=== PATIENT | female | born 1940 | race Caucasian/White ===

== ENCOUNTER 2020-06-23 14:09 | Outpatient (CLI) | payer MEDICARE, OTHER, SELFPAY ==
[2020-06-23 14:51] LABS: Alanine Aminotransferase 10 U/L (4-35); Albumin Level 4.2 g/dL (3.5-5.1); Alkaline Phosphatase 53 U/L (38-126); Anion Gap 6 mmol/L (8-16); Aspartate Amino Transferase 18 U/L (14-36); Bilirubin,Total 0.7 mg/dL (0.2-1.3); Blood Urea Nitrogen 15 mg/dL (7-17); Calcium 9.2 mg/dL (8.4-10.2); Carbon Dioxide 31 mmol/L (22-30); Chloride 105 mmol/L (98-107); Cholesterol 176 mg/dL (0-200); Estimated Glomerular Filt Rate > 60; Glucose 140 mg/dL (65-105); HDL Direct 73 mg/dL; Potassium 3.1 mmol/L (3.4-5.0); Sodium 142 mmol/L (137-145); Triglycerides 178 mg/dL (<150)
[2020-06-23 15:02] LABS: LDL Cholesterol Direct 86 mg/dL
[2020-06-23 15:21] LABS: Thyroid Stimulating Hormone 0.874 uIU/mL (0.465-4.680)
[2020-06-23 15:35] LABS: Vitamin D 25 Hydroxy 21.5 ng/mL
== END 2020-06-23 14:10 | disposition home or self-care (01) ==
PROVIDERS: PCP Internal Medicine; Visit Provider Internal Medicine
DX: Z51.81 Encounter for therapeutic drug level monitoring (principal); Z79.899 Other long term (current) drug therapy; I10 Essential (primary) hypertension; E03.9 Hypothyroidism, unspecified; E55.9 Vitamin D deficiency, unspecified; E78.5 Hyperlipidemia, unspecified
CPT/HCPCS: 36415; 80053; 80061; 82306; 84443

== ENCOUNTER 2020-12-22 13:35 | Outpatient (CLI) | payer MEDICARE, OTHER, SELFPAY | END 2020-12-22 13:36 | disposition home or self-care (01) | LOC: ANHCOVIDVC 13:35 | PROVIDERS: PCP Internal Medicine | DX: Z23 Encounter for immunization (principal) | CPT/HCPCS: 0001A; 91300 ==

== ENCOUNTER 2021-01-12 13:42 | Outpatient (CLI) | payer MEDICARE, OTHER, SELFPAY | END 2021-01-12 13:43 | disposition home or self-care (01) | LOC: ANHCOVIDVC 13:42 | PROVIDERS: PCP Internal Medicine | DX: Z23 Encounter for immunization (principal) | CPT/HCPCS: 0002A; 91300 ==

== ENCOUNTER 2021-08-12 09:47 | Outpatient (CLI) | payer MEDICARE, OTHER, SELFPAY ==
[2021-08-12 10:52] LABS: Alanine Aminotransferase 14 U/L (4-35); Albumin Level 4.9 g/dL (3.5-5.1); Alkaline Phosphatase 64 U/L (38-126); Anion Gap 8 mmol/L (8-16); Aspartate Amino Transferase 26 U/L (14-36); Bilirubin,Total 0.8 mg/dL (0.2-1.3); Blood Urea Nitrogen 18 mg/dL (7-17); Calcium 9.9 mg/dL (8.4-10.2); Carbon Dioxide 30 mmol/L (22-30); Chloride 105 mmol/L (98-107); Cholesterol 227 mg/dL (0-200); Estimated Glomerular Filt Rate > 60; Glucose 118 mg/dL (65-110); HDL Direct 97 mg/dL; Potassium 3.7 mmol/L (3.4-5.0); Sodium 143 mmol/L (137-145); Triglycerides 151 mg/dL (<150)
[2021-08-12 11:03] LABS: LDL Cholesterol Direct 124 mg/dL
[2021-08-12 11:12] LABS: Vitamin D 25 Hydroxy 21.6 ng/mL
== END 2021-08-12 09:48 | disposition home or self-care (01) ==
PROVIDERS: PCP Internal Medicine; Visit Provider Internal Medicine
DX: E78.5 Hyperlipidemia, unspecified (principal); E03.9 Hypothyroidism, unspecified; E55.9 Vitamin D deficiency, unspecified
CPT/HCPCS: 36415; 80053; 80061; 82306; 84443

== ENCOUNTER 2022-02-17 10:30 | Outpatient (CLI) | payer MEDICARE, OTHER, SELFPAY ==
[2022-02-17 11:14] LABS: Alanine Aminotransferase 10 U/L (6-35); Albumin Level 4.3 g/dL (3.5-5.1); Alkaline Phosphatase 64 U/L (38-126); Anion Gap 9 mmol/L (8-16); Aspartate Amino Transferase 25 U/L (14-36); Bilirubin,Total 0.9 mg/dL (0.2-1.3); Blood Urea Nitrogen 22 mg/dL (7-17); Calcium 8.9 mg/dL (8.4-10.2); Carbon Dioxide 28 mmol/L (22-30); Chloride 101 mmol/L (98-107); Cholesterol 214 mg/dL (0-200); Estimated Glomerular Filt Rate > 60; Glucose 114 mg/dL (65-110); HDL Direct 61 mg/dL; Potassium 3.2 mmol/L (3.4-5.0); Sodium 138 mmol/L (137-145); Triglycerides 138 mg/dL (<150)
[2022-02-17 11:25] LABS: LDL Cholesterol Direct 121 mg/dL
[2022-02-17 13:17] LABS: Vitamin D 25 Hydroxy 22.8 ng/mL
== END 2022-02-17 10:31 | disposition home or self-care (01) ==
PROVIDERS: PCP Internal Medicine; Visit Provider Internal Medicine
DX: I10 Essential (primary) hypertension (principal); Z51.81 Encounter for therapeutic drug level monitoring; E03.9 Hypothyroidism, unspecified; E55.9 Vitamin D deficiency, unspecified; E78.5 Hyperlipidemia, unspecified
CPT/HCPCS: 36415; 80053; 80061; 82306; 84443

== ENCOUNTER 2022-02-24 14:09 | Inpatient (IN) | payer MEDICARE, OTHER, SELFPAY ==
--- NOTE | ~2022-02-24 | XR_ITS ---
EXAMINATION: XR chest 1V portable DATE: 02/25/2022 23:42 INDICATION: Low oxygen saturation TECHNIQUE: frontal view of the chest was obtained. COMPARISON: Chest radiograph dated 02/24/2022 FINDINGS: New opacities in the right upper lung zone and in the left mid to lower lung zone. Streaky atelectasi s at the bilateral lung bases. No pneumothorax or pleural effusion. The cardiomediastinal silhouette is normal. Dense mitral annular calcification. Cholecystectomy clips in right upper quadrant. IMPRESSION: 1. New bilateral airspace opacities which could represent atelectasis or pneumonia. Reviewed, dictated and finalized at location A. IMPRESSION: 1. New bilateral airspace opacities which could represent atelectasis or pneumo gris.
--- NOTE | ~2022-02-24 | XR_ITS ---
XR chest 1V portable 02/24/2022 15:29 Indication: Weakness and dyspnea Procedure: AP portable chest Comparison: 08/14/2015 Findings: Cardiomegaly. No focal air space disease, pulmonary edema, pleural effusion or suspected pn eumothorax. No acute osseous abnormality. Impression: 1: No acute cardiopulmonary disease. Reviewed, dictated and finalized at location B. Impression: 1: No acute cardiopulmonary disease.
--- NOTE | ~2022-02-24 | US_ITS ---
EXAMINATION: US venous doppler [facility] DATE: 02/27/2022 10:16 INDICATION: Pulmonary embolism TECHNIQUE: Grayscale ultrasound images without and with compression and Doppler ultrasound images of the bilateral lower extremity veins were obtained. COMPARISON: CT abdomen and pelvis dated 02/26/2022 FINDINGS: Noncompressible deep venous thrombosis in the right profunda (deep) femoral vein, common femoral vein and extending into the visualized right external iliac vein. The visualized portions of right femora l vein, popliteal vein, posterior tibial veins, peroneal veins, gastrocnemius vein and greater saphen ous vein outflow are patent. The visualized portions of left common femoral vein, profunda femoral vein, femoral vein, popliteal v ein, posterior tibial veins, peroneal veins, gastrocnemius vein and greater saphenous vein outflow ar e patent. 6.0 x 3.0 x 1.4 cm Hills's cyst at the left popliteal fossa. IMPRESSION: 1. Nonocclusive deep venous thrombosis in the right profunda (deep) femoral vein, right common femor al vein and visualized distal right external iliac vein. 2. No deep venous thrombosis in the left lower limb. 3. Moderate-sized left Hills's cyst. Reviewed, dictated and finalized at location A. IMPRESSION: 1. Nonocclusive deep venous thrombosis in the right profunda (deep) femoral ve in, right common femoral vein and visualized distal right external iliac vein. 2. No deep venous thrombosis in the left lower limb. 3. Moderate-sized left Hills's cyst.
--- NOTE | ~2022-02-24 | CT_ITS ---
EXAMINATION: CT brain wo con DATE: 02/24/2022 15:51 INDICATION: Altered mental status. TECHNIQUE: Computed tomography (CT) of the head was performed without intravenous contrast. The mA wa s adjusted according to patient size. Iterative reconstruction technique was employed. The dose-lengt h product was 983.67 mGy-cm. COMPARISON: None FINDINGS: There are scattered areas of low attenuation in the cerebral white matter. There is no intr acranial hemorrhage, acute infarction, or abnormal intracranial mass lesion. The ventricles are rosa l in size. There is mild mucosal thickening in the paranasal sinuses. The mastoid air cells are rosa l. IMPRESSION: 1. Moderate nonspecific cerebral white matter disease, which likely represents chronic small vessel i schemic disease. Reviewed, dictated and finalized at location A. IMPRESSION: 1. Moderate nonspecific cerebral white matter disease, which likely represents chronic small vessel ischemic disease.
--- NOTE | ~2022-02-24 | XR_ITS ---
EXAMINATION: XR chest 1V portable DATE: 03/03/2022 05:54 INDICATION: Congestive heart failure. Pneumonia. TECHNIQUE: A single frontal view of the chest was obtained. COMPARISON: Chest single view 03/01/2022 FINDINGS: There are airspace opacities in all lung zones bilaterally. There is a small left pleural e ffusion. No pneumothorax. Cardiomegaly is noted. Surgical clips in the right upper quadrant are likel y from cholecystectomy. IMPRESSION: 1. Diffuse lung disease with mild improvement, consistent with pneumonia. 2. Improved small left pleural effusion. 3. Cardiomegaly. Reviewed, dictated and finalized at location A.
--- NOTE | ~2022-02-24 | CT_ITS ---
EXAMINATION: CTA chest PE abdomen pel DATE: 02/26/2022 14:30 INDICATION: hypoxia/UTI/AMS TECHNIQUE: Computed tomography angiography (CTA) of the chest abdomen and pelvis was performed with 1 00 mL Omnipaque-350 intravenous contrast timed to evaluate the pulmonary arteries and abdomen/pelvis. Coronal maximum intensity projection 3D-reconstructions were created by the technologist. The dose-l ength product (DLP) was 850.31 mGy-cm. Automated exposure control and iterative reconstruction techni que were employed. COMPARISON: X-ray chest 08/14/2015. FINDINGS: CTPA: Study quality: Adequate. Pulmonary arteries: Eccentric and weblike filling defects in the right main pulmonary artery, likely chronic emboli. Central nonobstructing filling defects in segmental and subsegmental branches of the right middle lobe and subsegmental branches of the right upper lobe. Obstructing and nonobstructing i nterlobar, segmental and subsegmental emboli in the right lower lobe. The RV/LV ratio is less than 1. Thoracic aorta: No dilation. Atherosclerotic calcification. Lung parenchyma and airways: Consolidation in the dependent left lower lobe and to a lesser extent th e dependent right upper and lower lobes. Thoracic inlet, axillae and chest wall: Unremarkable. Mediastinum: Normal. Heart and pericardium: Mild cardiomegaly. Aortic valve calcifications. Coronary artery calcifications: Mild. Pleura: Small bilateral effusions. Thoracic bones: No acute osseous finding. ABDOMEN/PELVIS: Liver: Normal. Biliary/Gallbladder: Gallbladder is normal. No bile duct dilation. Pancreas: No mass or duct dilation. Spleen: Normal. Adrenals:No mass. Kidneys: No mass, stone, or hydronephrosis. GI tract: No small or large bowel dilation. Normal appendix. Mesentery/Peritoneum: No ascites, mass, or free air. Retroperitoneum: No mass. Pelvis: Bladder is decompressed by Hernandez catheter. Rectal catheter in place.. Soft Tissues: Soft tissues and body wall unremarkable. Abdominopelvic bones: No acute osseous finding. IMPRESSION: Acute pulmonary emboli involving the right interlobar artery and segmental and subsegmental branches of all lobes in the right lung. Pulmonary findings may reflect pneumonia, possibly with a component o f aspiration. No acute abdominopelvic process. Results reported telephonically to Jaimie Cedillo the covering Nurse by Dr. Ashby at 3:05 PM on 2021. Reviewed, dictated and finalized at location K. IMPRESSION: Acute pulmonary emboli involving the right interlobar artery and segmental and subsegmental branches of all lobes in the right lung. Pulmonary findings may re flect pneumonia, possibly with a component of aspiration. No acute abdominopelv ic process. Results reported telephonically to Jaimie Cedillo the covering Nurse by Dr. Ramses villatoro at 3:05 PM on 02/26/2022.
--- NOTE | ~2022-02-24 | XR_ITS ---
EXAMINATION: XR chest 1V portable DATE: 03/01/2022 10:35 INDICATION: Dyspnea. Wheezing. TECHNIQUE: A single frontal view of the chest was obtained. COMPARISON: Chest single view 02/25/2022, chest CT 02/26/2022 FINDINGS: There are patchy airspace opacities in all lung zones bilaterally. There is a small left pl eural effusion. No pneumothorax. Cardiomegaly is noted. Surgical clips in the right upper quadrant ar e likely from cholecystectomy. IMPRESSION: 1. Worsened diffuse lung disease, consistent with pneumonia. 2. Small left pleural effusion. 3. Cardiomegaly. Reviewed, dictated and finalized at location A.
[2022-02-24 14:25] VITALS: BP 154/72; PULSE 54; RESP 20; TEMP 36.7; O2SAT 100
--- NOTE | 2022-02-24 14:38 | ECG_ITS ---
Measurements Intervals [place] Rate: 54 P: 43 [place]: 162 QRS: -25 QRSD: 145 T: 133 QT: 502 QTc: 477 Interpretive Statements SINUS BRADYCARDIA POSSIBLE LEFT ATRIAL ENLARGEMENT LEFT BUNDLE BRANCH BLOCK ABNORMAL ECG Electronically Signed On 02-24-2022 19:58:59 CDT by Bhavin Padilla D.O.
[2022-02-24 15:14] LABS: Basophils Percent Auto 0.5 % (0.2-1.2); Eosinophils Absolute Auto 0.2 K/mm3 (0-0.3); Eosinophils Percent Auto 1.9 % (0-4.4); Hematocrit 44.5 % (37.0-47.0); Hemoglobin 14.1 g/dL (12.0-15.0); Immature Granulocyte Absolute 0.03 K/mm3 (0.00-0.031); Immature Granulocyte Percent A 0.3 % (0-0.5); Lymphocytes Absolute Auto 2.64 K/mm3 (0.9-3.2); Lymphocytes Percent Auto 30.6 % (18.3-44.2); Mean Corpuscular HGB Conc 31.7 g/dl (32-36); Mean Corpuscular Hemoglobin 31.2 pg (26-34); Mean Corpuscular Volume 98.5 fl (80-100); Mean Platelet Volume 11.1 fl (7.4-10.4); Monocytes Absolute Auto 0.7 K/mm3 (0.1-0.6); Monocytes Percent Auto 8.6 % (2.6-8.5); Neutrophils Percent Auto 58.1 % (45.5-73.1); Platelet Count Result 209 k/mm3 (150-375); Red Blood Count 4.52 M/mm3 (4.2-5.4); Red Cell Distribution Width 14.3 % (11.5-14.5); White Blood Count 8.6 K/mm3 (4.5-10.0)
[2022-02-24 15:25] LABS: Appearance Urine Turbid (Clear); Bilirubin Urine 1+ (Negative); Blood Urine 1+ (Negative); Color Urine Yellow (Yellow); Glucose Urine UA Negative (Negative); Ketones Urine Negative (Negative); Leukocyte Esterase Ur 3+ LEU/UL (Negative); Nitrate Urine Positive (Negative); Protein Urine 2+ mg/dL (Negative); Specific Grav Ur >= 1.030 (1.001-1.035); pH Urine 6.5 (5.0-9.0)
[2022-02-24 15:27] LABS: Alanine Aminotransferase 10 U/L (6-35); Albumin Level 4.3 g/dL (3.5-5.1); Alkaline Phosphatase 62 U/L (38-126); Anion Gap 9 mmol/L (8-16); Aspartate Amino Transferase 24 U/L (14-36); Bilirubin,Total 1.2 mg/dL (0.2-1.3); Blood Urea Nitrogen 15 mg/dL (7-17); Calcium 9.1 mg/dL (8.4-10.2); Carbon Dioxide 32 mmol/L (22-30); Chloride 102 mmol/L (98-107); Estimated Glomerular Filt Rate > 60; Glucose 106 mg/dL (65-110); Lactic Acid Reflex 2.2 mmol/L (0.7-2.0); Potassium 3.4 mmol/L (3.4-5.0); Sodium 143 mmol/L (137-145)
--- NOTE | 2022-02-24 15:29 | ED.AMS ---
HPI - Altered Mental Status General Chief Complaint: Altered Mental Status Stated Complaint: altered mental status Time Seen by Provider: 02/24/22 14:28 Source: family History of Present Illness HPI narrative: Patient is brought in by family for weakness. Patient has known dementia family reports over the past week she has had progressive weakness and required additional assistance at home. Family has not noted any change in appetite however they have noted decreased urine output. Patient has not complained of any specific areas of pain to his abdominal pain chest pain or dysuria however patient does not voice any concerns on a regular basis he does not speak very much. Family has not noted any fevers, nausea, vomiting. They have noted some diarrhea over the past few days. Related Data Home Medications Medication Instructions Recorded Confirmed donepezil [Aricept] 10 mg PO DAILY 02/24/22 02/24/22 levothyroxine 88 mcg PO DAILY 02/24/22 02/24/22 lisinopril 20 mg PO DAILY 02/24/22 02/24/22 memantine 28 mg PO DAILY 02/24/22 02/24/22 metoprolol succinate 50 mg PO DAILY 02/24/22 02/24/22 simvastatin 20 mg PO DAILY 02/24/22 02/24/22 Allergies Allergy/AdvReac Type Severity Reaction Status Date / Time Sulfa (Sulfonamide Allergy Unknown Unknown Verified 02/24/22 14:45 Antibiotics) Review of Systems Review of Systems: ROS unobtainable: Yes unobtainable due to medical condition PMFSH Family History Family History Mother Family history of malignant neoplasm Social History Social History Smoking status: Never smoker Second hand tobacco smoke exposure: No Alcohol intake: never Substance use: never Substance use type: does not use Spiritual care concerns: Yes (Zohaib) Exam Narrative: GENERAL: Well-appearing, well-nourished, and in no acute distress. HEAD: Normocephalic, atraumatic. EYES: PERRLA and EOMI. ENT: Nares clear, no rhinorrhea or epistaxis. Mucous membranes moist. NECK: Supple. No masses. No JVD CHEST: Clear to auscultation. No respiratory distress. No wheezes rales or rhonchi HEART: Regular rate and rhythm. No murmur heard. Normal peripheral pulses. ABDOMEN: Soft, nontender, nondistended, normal active bowel sounds. EXTREMITIES: Normal range of motion. No edema. SKIN: Warm, dry, no rash. NEURO: No focal deficits. Alert and oriented x3. PSYCH: Normal mood and affect. Course Reevaluation(s) Reevaluation #1: Results and work-up reviewed with patient and family. Patient is requiring more assistance than family is able to provide at this time. Patient will be admitted for further treatment. Family is interested in pursuing home health and other forms of additional home. Date: 02/24/22 Time: 16:21 Vital Signs Vital signs: Vital Signs Temperature 36.7 C 02/24/22 14:25 Pulse Rate 54 L 02/24/22 14:25 Respiratory Rate 20 02/24/22 14:25 Blood Pressure 154/72 H 02/24/22 14:25 Pulse Oximetry 100 02/24/22 14:25 Temperature 36.0 C L 02/24/22 18:08 Pulse Rate 101 H 02/24/22 18:08 Respiratory Rate 18 02/24/22 18:08 Blood Pressure 151/94 H 02/24/22 18:08 Pulse Oximetry 93 02/24/22 18:08 MDM - Altered Mental Status MDM Narrative Medical decision making narrative: Patient presents with progressive weakness over the past week now requires constant assistance with getting up walking around and using the restroom. Patient overall looks clinically well labs and imaging obtained. Lab goal for UA concerning for infection otherwise labs were clinically unremarkable. Patient treated with fluids and antibiotics. Given the amount of care she is currently requiring at home family is unable to appropriately care for her she will be admitted for further management. Lab Data Result diagrams: 02/24/22 15:07 02/24/22 15:07 Labs: Lab Results
[2022-02-24 15:35] LABS: Bacteria Urine 2+ /hpf; Mucus Urine Heavy /lpf; RBC Urine 21-50 /hpf (0-2); WBC Clumps Urine Present /HPF; WBC Urine >75 /hpf
[2022-02-24 15:37] LABS: Add Urine Microscopic? YES
[2022-02-24] MEDS: SODIUM CHLORIDE 0.9% IV 500 ML 999 ML IV CONT (15:38)
[2022-02-24 15:39] LABS: Ammonia < 9 umol/L (9-30)
[2022-02-24 17:09] VITALS: BP 150/76; PULSE 56; RESP 18; O2SAT 99
--- NOTE | 2022-02-24 17:49 | PC.NURSE ---
This patient, Sana Murrieta, was admitted to 3 [facility] Surg Room 332-01 on 02/24/22 @ 8167. Patient/family oriented to hospital policies and general routines including ID bracelet, bed and alarms, visiting hours, pain management, procedures, bathroom and other care routines, personal items, smoking policy, room service/diet, and visiting hours. Information on how to activate the Rapid Response Team has been discussed. Patient/Family are encouraged to report perceived risks to care and to ask questions if they do not understand what they are told or what they should do.
[2022-02-24 18:00] VITALS: BMI 25.2
[2022-02-24 18:08] VITALS: BP 151/94; PULSE 101; RESP 18; TEMP 36; O2SAT 93
[2022-02-24 18:12] LABS: Reflex Lactic Acid Yes or No Add Lactic
--- NOTE | 2022-02-24 18:36 | PC.NURSE ---
pt's daughter and were bedside and offering information as pt is A&O 0. Pt's daughter is the POA if becomes incapacitated. Both, particularly the daughter, POAs stated that pt becomes violent and is very aggressive and they strongly recommend that she be sedated. They also stated that if/when the need arises for her to be medicated for her or our safety they wholeheartedly consent to us doing whatever is needed in order to calm her down. They also acknowledged that pt has advanced dementia and permanent and consistent personality changes including but not limited to being violent and being non-responsive with a baseline of A&O 0-1.
[2022-02-24 18:39] LABS: Lactic Acid 2.5 mmol/L (0.7-2.0)
--- NOTE | 2022-02-24 18:42 | PC.NURSE ---
pt's and daughter (who are the POAs) stated that pt is to be a modified code in that they DO WANT INTUBATION and they DO NOT WANT CPR in the event either are needed.
[2022-02-24] MEDS: SODIUM CHLORIDE 0.9% IV 1,000 ML 125 ML IV CONT (18:48)
--- NOTE | 2022-02-24 19:55 | PM.IMHP ---
H&P: HPI History of Present Illness Date/Time: 02/24/22 19:55 Chief Complaint: No complaints Narrative: This is an 81-year-old female with past medical history significant for dementia, hypertension, hypothyroidism, dyslipidemia. Patient was brought to the emergency room for evaluation by family members who noticed that she was getting progressively weak and needing a lot of assistance at home not been her usual, patient is unable to provide any history. Preliminary workup was significant for urinalysis with numerous WBCs present. Patient is been admitted for further evaluation management and treatment. Review of Systems Review of Systems: ROS unobtainable: Yes unobtainable due to medical condition (Dementia) [facility] Family History Family History Mother Family history of malignant neoplasm Social History Social History Smoking status: Never smoker Second hand tobacco smoke exposure: No Alcohol intake: never Substance use: never Substance use type: does not use Spiritual care concerns: Yes (Zohaib) Meds Home Medications and Allergies Home Medications Medication Instructions Recorded Confirmed Type famotidine 20 mg tablet 20 mg PO DAILY #90 tablet 08/26/19 02/24/22 Rx donepezil [Aricept] 10 mg PO DAILY 02/24/22 02/24/22 History levothyroxine 88 mcg PO DAILY 02/24/22 02/24/22 History lisinopril 20 mg PO DAILY 02/24/22 02/24/22 History memantine 28 mg PO DAILY 02/24/22 02/24/22 History metoprolol succinate 50 mg PO DAILY 02/24/22 02/24/22 History simvastatin 20 mg PO DAILY 02/24/22 02/24/22 History Allergies Allergy/AdvReac Type Severity Reaction Status Date / Time Sulfa (Sulfonamide Allergy Unknown Unknown Verified 02/24/22 14:45 Antibiotics) Vital Signs Vital Signs - 24 hr 02/24/22 14:25 02/24/22 17:09 02/24/22 18:08 Temperature 98.0 F 96.8 F L Pulse Rate 54 L 56 L 101 H Respiratory Rate 20 18 18 Blood Pressure 154/72 H 150/76 H 151/94 H Pulse Oximetry 100 99 93 Exam Const: General: cooperative, comfortable, no acute distress, well developed, alert, awake, well groomed and other (Well-appearing) Nutritional Appearance: average body habitus Orientation/consciousness: oriented to person Other: Dementia HENMT: Head: normal to inspection, normocephalic and atraumatic Ears: hearing grossly normal bilaterally General nose exam: Normal external nose present Face and sinus: normal facial exam Mouth: Yes Normal oral and palatal mucosa present Eyes: General: appearance normal, both eyes and all related structures Alignment and Position: alignment normal Sclera: sclerae normal Pupils: Equal, round and reactive pupils present EOM: EOMs intact bilaterally Neck: Neck: normal visual inspection, full ROM, no lymphadenopathy, supple and no JVD Thyroid: thyroid normal Lymphatic: no lymphadenopathy noted Resp: Effort & Inspection: normal respiratory effort and able to speak in complete sentences Auscultation: clear to auscultation bilaterally, no crackles, no rales, no rhonchi and no wheezes Cardio: Jugular venous distension: no JVD Rate: regular rate Rhythm: regular rhythm Heart sounds: S1 normal heart sound present and S2 normal heart sound present GI: Inspection: normal to inspection GI Palp: Yes Soft to palpation, No Tenderness to palpation present (GI), No Guarding due to palpation present (GI) and Yes No hepatosplenomegaly present : General: Yes deferred Skin: Rashes: no rashes Wounds: no wounds Neuro: General: oriented to person and CN's II-XI intact bilaterally Cranial nerves: Yes CN's II-XII intact bilaterally and Yes Equal, round and reactive pupils present Cognition (Neuro): abnormal cognition (Dementia) Speech: normal speech Gait exam (Neuro): Unable to assess gait Motor exam (neuro): 5/5 motor strength present throughout Extrem: General: normal to inspection
[2022-02-24 22:00] VITALS: BP 113/72; PULSE 83; RESP 20; TEMP 36.3; O2SAT 96
[2022-02-25] VITALS (10 sets, daily range): BP systolic 107–196; BP diastolic 62–187; PULSE 55–112; RESP 12–32; TEMP 36.1–38.8; O2SAT 82–100
[2022-02-25] MEDS: LEVOTHYROXINE SODIUM 88 MCG TABLET PO (06:55)
[2022-02-25] MEDS: METOPROLOL SUCCINATE EXT REL 50 MG TABCR PO (08:22)
[2022-02-25] MEDS: FAMOTIDINE 20 MG TABLET PO (08:22)
[2022-02-25] MEDS: lisinopriL 20 MG TABLET PO (08:22)
[2022-02-25] MEDS: DONEPEZIL HCL 10 MG TABLET PO (08:22)
[2022-02-25] MEDS: SODIUM CHLORIDE 0.9% IV 1,000 ML 125 ML IV CONT (08:22)
[2022-02-25] MEDS: MEMANTINE HCL XR 28 MG CAP PO (08:22)
[2022-02-25] MEDS: SIMVASTATIN 20 MG TABLET PO (08:22)
[2022-02-25 09:05] LABS: Basophils Absolute Auto 0.1 K/mm3 (0.0-0.1); Basophils Percent Auto 0.5 % (0.2-1.2); Eosinophils Absolute Auto 0.2 K/mm3 (0-0.3); Eosinophils Percent Auto 1.7 % (0-4.4); Hematocrit 42.8 % (37.0-47.0); Hemoglobin 14.2 g/dL (12.0-15.0); Immature Granulocyte Absolute 0.05 K/mm3 (0.00-0.031); Immature Granulocyte Percent A 0.5 % (0-0.5); Lymphocytes Absolute Auto 2.69 K/mm3 (0.9-3.2); Lymphocytes Percent Auto 27.8 % (18.3-44.2); Mean Corpuscular HGB Conc 33.2 g/dl (32-36); Mean Corpuscular Hemoglobin 31.5 pg (26-34); Mean Corpuscular Volume 94.9 fl (80-100); Mean Platelet Volume 10.7 fl (7.4-10.4); Monocytes Absolute Auto 0.9 K/mm3 (0.1-0.6); Monocytes Percent Auto 8.8 % (2.6-8.5); Neutrophils Absolute Auto 5.9 K/mm3 (1.3-6.7); Neutrophils Percent Auto 60.7 % (45.5-73.1); Platelet Count Result 208 k/mm3 (150-375); Red Blood Count 4.51 M/mm3 (4.2-5.4); Red Cell Distribution Width 13.9 % (11.5-14.5); White Blood Count 9.7 K/mm3 (4.5-10.0)
[2022-02-25 09:27] LABS: Alanine Aminotransferase 10 U/L (6-35); Albumin Level 4.5 g/dL (3.5-5.1); Alkaline Phosphatase 71 U/L (38-126); Anion Gap 9 mmol/L (8-16); Aspartate Amino Transferase 23 U/L (14-36); Bilirubin,Total 1.7 mg/dL (0.2-1.3); Blood Urea Nitrogen 9 mg/dL (7-17); Calcium 8.8 mg/dL (8.4-10.2); Carbon Dioxide 28 mmol/L (22-30); Chloride 99 mmol/L (98-107); Estimated Glomerular Filt Rate > 60; Glucose 126 mg/dL (65-110); Sodium 136 mmol/L (137-145)
--- NOTE | 2022-02-25 10:30 | PM.IMPN ---
Progress Note: A&P Assessment and Plan (1) Acute UTI: Code(s): N39.0 - Urinary tract infection, site not specified Status: Acute Assessment and Plan: -abnormal UA -continue Rocephin -urine culture pending -vitals stable, no fevers or leukocytosis (2) Weakness: Code(s): R53.1 - Weakness Status: Acute Assessment and Plan: -Likely secondary to acute illness -Continue to monitor (3) Alzheimer's disease with late onset: Onset Date: 02/05/19 Code(s): G30.1 - Alzheimer's disease with late onset; F02.80 - Dementia in other diseases classified elsewhere without behavioral disturbance Status: Acute Assessment and Plan: -Continue donepezil -likely exacerbated by infection -will continue to monitor mental status (4) Essential hypertension: Code(s): I10 - Essential (primary) hypertension Status: Acute Assessment and Plan: -mildly elevated but stable -continue home meds -continue to monitor (5) Hypokalemia: Code(s): E87.6 - Hypokalemia Status: Acute Assessment and Plan: -mild -monitor and replace Subjective Date/time seen: 02/25/22 10:30 Interval history: 81-year-old female with past medical history significant for dementia, hypertension, hypothyroidism, dyslipidemia, presented to the ED for increased weakness. Today patient is A/Ox0. Does not respond appropriately to questions. Keeps trying to get out of bed. Denies pain. Further hx limited secondary to mental status. Review of Systems Review of Systems: ROS unobtainable: Yes unobtainable due to mental status Objective Data Vital Signs Vital Signs: Vital Signs - 24 hr 02/24/22 14:25 02/24/22 17:09 02/24/22 18:08 Temperature 98.0 F 96.8 F L Pulse Rate 54 L 56 L 101 H Respiratory Rate 20 18 18 Blood Pressure 154/72 H 150/76 H 151/94 H Pulse Oximetry 100 99 93 02/24/22 22:00 02/25/22 06:00 Temperature 97.3 F L 97.2 F L Pulse Rate 83 71 Respiratory Rate 20 20 Blood Pressure 113/72 157/74 H Pulse Oximetry 96 97 Intake/Output Intake/Output: Intake & Output 02/22/22 02/23/22 02/24/22 02/25/22 23:59 23:59 23:59 23:59 Intake Total 550 1060 Balance 550 1060 Meds/Results Medications: Active Medications Generic Name Dose Route Start Last Admin Trade Name Brett PRN Reason Stop Dose Admin Donepezil HCl 10 mg 02/25/22 09:00 02/25/22 08:22 Donepezil Hcl 10 Mg Tablet PO 10 mg DAILY ARIAN Administration Famotidine 20 mg 02/25/22 09:00 02/25/22 08:22 Famotidine 20 Mg Tablet PO 20 mg DAILY ARIAN Administration Ceftriaxone Sodium/Dextrose 1 gm in 50 mls @ 100 mls/hr 02/25/22 16:00 Rocephin 1 Gm/D5w 50 Ml IVPB Q24H ARIAN Acetaminophen 1,000 mg in 100 mls @ 400 mls/hr 02/24/22 16:50 Ofirmev 1,000 Mg Ivpb IVPB 02/25/22 16:49 Q6H PRN Mild Pain (1-3) or Fever Sodium Chloride 1,000 mls @ 125 mls/hr 02/24/22 16:50 02/25/22 08:30 Normal Saline Iv IV CONT 0 mls/hr .Q8H ARIAN Infusion Levothyroxine Sodium 88 mcg 02/25/22 06:30 02/25/22 06:55 Levothyroxine Sodium 88 Mcg Tablet PO 88 mcg DAILY@0630 ARIAN Administration Lisinopril 20 mg 02/25/22 09:00 02/25/22 08:22 Lisinopril 20 Mg Tablet PO 20 mg DAILY ARIAN Administration Memantine 28 mg 02/25/22 09:00 02/25/22 08:22 Memantine Hcl Xr 28 Mg Cap PO 28 mg DAILY ARIAN Administration Metoprolol Succinate 50 mg 02/25/22 09:00 02/25/22 08:22 Metoprolol Succinate Ext Rel 50 Mg Tabcr PO 50 mg DAILY ARIAN Administration Simvastatin 20 mg 02/25/22 09:00 02/25/22 08:22 Simvastatin 20 Mg Tablet PO 20 mg DAILY ARIAN Administration Radiology Results: ITS Impressions Chest X-Ray 02/24/22 15:31 Impression: 1: No acute cardiopulmonary disease. Head CT 02/24/22 15:52 IMPRESSION: 1. Moderate nonspecific cerebral white matter disease, which likely represents chronic sm
--- NOTE | 2022-02-25 11:26 | PC.NURSE ---
Pt's daughter called wanting an update. She reminded me that we have permission to sedate or medicate pt in any way necessary to keep her calm. She also stressed that pt cannot be discharged to home and needs permanent care placement. She also stated again that pt's baseline has been A&O 0-1 for several years now. She also stated that her dad/pt's also needs placement. I told her that I would pass along her concerns and the information to care coordination and the hospitalist. Lastly, she asked that the hospitalist frankly and in great detail explain to her dad/pt's that he is unable to provide the care pt's requires which is why permanent placement is necessary.
--- NOTE | 2022-02-25 11:45 | PC.NURSE ---
I contacted care coordination (Danae) and the hospitalist (Bethany Nina) to make them aware of the needs and requests regarding pt and pt's discharge plans as requested by pt's daughter, Moni
[2022-02-25] MEDS: POTASSIUM CHLORIDE 20 MEQ TABLET 40 MEQ PO (13:14)
[2022-02-25] MEDS: SODIUM CHLORIDE 0.9% IV 1,000 ML 100 ML IV CONT (17:36)
[2022-02-25] MEDS: FUROSEMIDE INJ 40 MG/4 ML VIAL IV PUSH (22:00)
[2022-02-25 22:14] LABS: Alveolar/Arterial O2 Gradient 599.1 mmHg; Base Excess ABG -4.3 mEq/l (+/-2.0); Fractional Inspired Oxygen 100 %; HCO3 ABG 20.6 mEq/l (22.0-26.0); Oxygen Content ABG 20.4 %vol (16.0-22.0); Oxygen Saturation ABG 94.9 % (95.0-100.0); Oxyhemoglobin 93.7 % THb (90.0-100.0); PCO2 ABG 37.3 mmHg (35.0-45.0); PO2 ABG 76.6 mmHg (80.0-100.0); PO2 FiO2 Ratio Arterial Blood 0.77 %; Total Hemoglobin 15.5 g/dL (12.0-18.0); pH ABG 7.359 (7.350-7.450)
[2022-02-25 22:15] LABS: Device NON-INVASIVE VENT; Modified Allen's Test Unable to perform; Site Drawn RIGHT BRACHIAL
[2022-02-25 22:16] LABS: Non-Invasive Expiratory Pressure 8 CMH2O; Non-Invasive Inspiratory Pressure 12 CMH2O; Non-Invasive Vent Rate 18 /MIN
--- NOTE | 2022-02-25 22:20 | PCRCNOTE ---
RT checked pt's 02 saturations which read 56%. RN called rapid response, RT placed pt on 15L NRB. Per MD order, RT placed pt on BIPAP- 09/15 R18 100% Fi02. Pt's 02 saturations came up to 91%.
--- NOTE | 2022-02-25 23:03 | PC.NURSE ---
Spoke with Ruslan and daughter Jessica. Explained what happened to cause rapid response and what interventions were made. Clarified code status with family and pt is to stay a modified code: NO CPR but OK with intubation at his time.
[2022-02-26] VITALS (25 sets, daily range): BP systolic 96–147; BP diastolic 45–72; PULSE 57–73; RESP 12–27; TEMP 36.2–36.7; O2SAT 96–100
[2022-02-26 01:46] LABS: Glucose Point of Care 279 mg/dl (65-105)
--- NOTE | 2022-02-26 03:08 | PC.NURSE ---
1944 on 02/25 pt was incontinent of stool & Loyda our Charge Nurse was cleaning stool off pt when increased effort of breathing started. Sparkle informed me and I listened to lungs which sounded course & wet mostly upper. I shut off Iv fluids of NS at 100hr & contacted respiratory. Respiratory therapist Ashley responded. She agreed lungs were wet to get a bi pap while I called a rapid response. At 2154 pt had [address] Teran. Then a 16 par[place] was started with an initial out put of 550. at about 4 a fecal containment system was applied. 334 Pt was transported to IMU room 207. All belongings, chart & medications taken to IMU also.
--- NOTE | 2022-02-26 04:10 | ADMGEN ---
This patient, Sana Murrieta, was admitted to IMU Room 207-01 at 0340 on 02/26/22. Patient/family oriented to hospital policies and general routines including ID bracelet, bed and alarms, visiting hours, pain management, procedures, bathroom and other care routines, personal items, smoking policy, room service/diet, and visiting hours. Information on how to activate the Rapid Response Team has been discussed. Patient/Family are encouraged to report perceived risks to care and to ask questions if they do not understand what they are told or what they should do.
[2022-02-26 04:53] LABS: Basophils Percent Auto 0.2 % (0.2-1.2); Eosinophils Percent Auto 0.1 % (0-4.4); Hematocrit 45.3 % (37.0-47.0); Immature Granulocyte Absolute 0.18 K/mm3 (0.00-0.031); Immature Granulocyte Percent A 1.1 % (0-0.5); Lymphocytes Absolute Auto 1.04 K/mm3 (0.9-3.2); Lymphocytes Percent Auto 6.3 % (18.3-44.2); Mean Corpuscular HGB Conc 30.9 g/dl (32-36); Mean Corpuscular Hemoglobin 30.8 pg (26-34); Mean Corpuscular Volume 99.8 fl (80-100); Mean Platelet Volume 10.9 fl (7.4-10.4); Monocytes Absolute Auto 1.2 K/mm3 (0.1-0.6); Monocytes Percent Auto 7.1 % (2.6-8.5); Neutrophils Absolute Auto 14.1 K/mm3 (1.3-6.7); Neutrophils Percent Auto 85.2 % (45.5-73.1); Platelet Count Result 183 k/mm3 (150-375); Red Blood Count 4.54 M/mm3 (4.2-5.4); Red Cell Distribution Width 14.2 % (11.5-14.5); White Blood Count 16.5 K/mm3 (4.5-10.0)
[2022-02-26 05:05] LABS: Anion Gap 10 mmol/L (8-16); Blood Urea Nitrogen 14 mg/dL (7-17); Calcium 8.5 mg/dL (8.4-10.2); Carbon Dioxide 26 mmol/L (22-30); Chloride 100 mmol/L (98-107); Estimated Glomerular Filt Rate > 60; Glucose 160 mg/dL (65-110); Potassium 3.7 mmol/L (3.4-5.0); Sodium 136 mmol/L (137-145)
[2022-02-26] MEDS: LEVOTHYROXINE SODIUM 88 MCG TABLET PO (06:12)
--- NOTE | 2022-02-26 09:06 | PM.IMPN ---
Progress Note: A&P Assessment and Plan (1) Acute respiratory failure with hypoxia: Code(s): J96.01 - Acute respiratory failure with hypoxia Status: Acute Assessment and Plan: -apparently had desaturations last night, was started on bipap and moved to IMU -ABG pH 7.359, pCO2 37.3, pO2 76.6, HC03 20.96, O2 94.9 -CXR shows new opacities consistent with atelectasis vs pneumonia -stat covid/flu swabs -added azithromycin to rocephin for PNA coverage -check CTA to r/o PE -will try to wean off bipap, if deteriorates or continues needing bipap will consider pulm consult -pt is modified code without CPR but will be intubated if it becomes neccessary (2) Acute UTI: Code(s): N39.0 - Urinary tract infection, site not specified Status: Acute Assessment and Plan: -abnormal UA -continue Rocephin -urine culture positive for E coli susceptible to rocephin -leukocytosis of 16.5, no fevers (3) Weakness: Code(s): R53.1 - Weakness Status: Acute Assessment and Plan: -Likely secondary to acute illness -Continue to monitor (4) Alzheimer's disease with late onset: Onset Date: 02/05/19 Code(s): G30.1 - Alzheimer's disease with late onset; F02.80 - Dementia in other diseases classified elsewhere without behavioral disturbance Status: Acute Assessment and Plan: -Continue donepezil -likely exacerbated by infection -will continue to monitor mental status (5) Essential hypertension: Code(s): I10 - Essential (primary) hypertension Status: Acute Assessment and Plan: -mildly elevated but stable -continue home meds -hypotensive this AM, will hold BP meds (6) Hypokalemia: Code(s): E87.6 - Hypokalemia Status: Acute Assessment and Plan: -mild -monitor and replace (7) Acquired hypothyroidism: Code(s): E03.9 - Hypothyroidism, unspecified Status: Acute Assessment and Plan: -TSH elevated -Check T4 -Continue Levothyroxine Subjective Date/time seen: 02/26/22 09:06 Interval history: 81-year-old female with past medical history significant for dementia, hypertension, hypothyroidism, dyslipidemia, presented to the ED for increased weakness. Today patient is A/Ox0. She is lethargic this morning. She is on bipap as she apparently desaturated last night and was moved to IMU. Spoke w/ patient's daughter who states her and her dad (he is POA but sometimes gets confused) spoke and at this point they wish to keep her modified code with no CPR but will intubate if neccessary. Review of Systems Review of Systems: ROS unobtainable: Yes unobtainable due to mental status Exam Narrative: General: lethargic, sleeping while on bipap, NAD, elderly Eyes: PERRL, no scleral icterus HEENT: NCAT, external ears normal, MMM Respiratory: Lungs CTA bilaterally, on BIPAP Cardiovascular: RRR, no murmur Abdominal: Soft, nontender, non distended, no rebound or guarding Musculoskeletal: Moves all 4 extremities, no edema Neurological: A/Ox0, no facial asymmetry, non verbal at this time Skin: Warm, dry, no rashes Psychiatric: Confused Objective Data Vital Signs Vital Signs: Vital Signs - 24 hr 02/25/22 14:00 02/25/22 21:40 02/25/22 21:50 Temperature 97.0 F L 101.8 F H Pulse Rate 55 L 91 107 H Respiratory Rate 16 12 Blood Pressure 167/62 H 196/187 H Pulse Oximetry 97 98 82 L 02/25/22 22:03 02/25/22 22:18 02/25/22 22:30 Temperature Pulse Rate 106 H 112 H Respiratory Rate 18 32 H 18 Blood Pressure 183/103 H Pulse Oximetry 94 91 100 02/25/22 23:00 02/25/22 23:32 02/25/22 23:55 Temperature 101.5 F H Pulse Rate 91 85 Respiratory Rate 12 18 Blood Pressure 114/96 H 107/62 Pulse Oximetry 98 99 98 02/26/22 00:22 02/26/22 00:25 02/26/22 03:40 Temperature 98.1 F Pulse Rate 63 69 Respiratory Rate 27 H 24 H Blood Pressure 141/64 H Pulse Oxi
[2022-02-26] MEDS: SODIUM CHLORIDE 0.9% IV 1,000 ML 75 ML IV CONT (09:38)
[2022-02-26 10:18] LABS: Influenza A QL RT-PCR Negative (Negative); Influenza B QL RT-PCR Negative (Negative); SARS-CoV-2 RNA PCR Negative
--- NOTE | 2022-02-26 11:06 | PCPTNOTE ---
Per nurse, Tash, hold therapy today due to decreased responsiveness and combative. Will check again on 02/27.
[2022-02-26 11:36] LABS: Total Triiodothyronine (T3) 0.62 NG/ML (0.97-1.69)
[2022-02-26] MEDS: HEPARIN SOD/D5W 100 UNITS/ML 25,000 UNITS/250 ML BAG 8 UNITS IV CONT (15:49)
[2022-02-26] MEDS: HEPARIN SODIUM 5,000 UNITS/ML VIAL 3500 UNITS IV PUSH (15:51)
[2022-02-26 16:15] LABS: Basophils Percent Auto 0.1 % (0.2-1.2); Hematocrit 40.1 % (37.0-47.0); Hemoglobin 12.8 g/dL (12.0-15.0); Immature Granulocyte Absolute 0.09 K/mm3 (0.00-0.031); Immature Granulocyte Percent A 0.6 % (0-0.5); Lymphocytes Absolute Auto 1.86 K/mm3 (0.9-3.2); Lymphocytes Percent Auto 12.6 % (18.3-44.2); Mean Corpuscular HGB Conc 31.9 g/dl (32-36); Mean Corpuscular Hemoglobin 31.2 pg (26-34); Mean Corpuscular Volume 97.8 fl (80-100); Mean Platelet Volume 10.8 fl (7.4-10.4); Monocytes Absolute Auto 1.3 K/mm3 (0.1-0.6); Monocytes Percent Auto 8.4 % (2.6-8.5); Neutrophils Absolute Auto 11.6 K/mm3 (1.3-6.7); Neutrophils Percent Auto 78.3 % (45.5-73.1); Platelet Count Result 162 k/mm3 (150-375); Red Cell Distribution Width 14.1 % (11.5-14.5); White Blood Count 14.8 K/mm3 (4.5-10.0)
[2022-02-26 16:25] LABS: INR 1.3; Prothrombin Time 15.8 Seconds (11.1-14.7)
[2022-02-26 16:26] LABS: Partial Thromboplastin Time 33.3 SECONDS (22.3-36.8)
[2022-02-26 23:31] LABS: Partial Thromboplastin Time > 200.0 SECONDS (22.3-36.8)
[2022-02-27] VITALS (24 sets, daily range): BP systolic 126–148; BP diastolic 48–85; PULSE 61–95; RESP 14–23; TEMP 36.2–36.9; O2SAT 93–100
[2022-02-27] MEDS: SODIUM CHLORIDE 0.9% IV 1,000 ML 75 ML IV CONT ×2 (02:01→16:22)
[2022-02-27 06:30] LABS: Basophils Percent Auto 0.2 % (0.2-1.2); Eosinophils Absolute Auto 0.1 K/mm3 (0-0.3); Hemoglobin 11.4 g/dL (12.0-15.0); Immature Granulocyte Absolute 0.08 K/mm3 (0.00-0.031); Immature Granulocyte Percent A 0.7 % (0-0.5); Immature Platelet Fraction Pct 6.6 % (0.9-11.2); Lymphocytes Absolute Auto 2.46 K/mm3 (0.9-3.2); Lymphocytes Percent Auto 20.8 % (18.3-44.2); Mean Corpuscular HGB Conc 31.7 g/dl (32-36); Mean Corpuscular Hemoglobin 31.4 pg (26-34); Mean Corpuscular Volume 99.2 fl (80-100); Mean Platelet Volume 10.9 fl (7.4-10.4); Monocytes Percent Auto 8.2 % (2.6-8.5); Neutrophils Absolute Auto 8.2 K/mm3 (1.3-6.7); Neutrophils Percent Auto 69.1 % (45.5-73.1); Platelet Count Result 145 k/mm3 (150-375); Red Blood Count 3.63 M/mm3 (4.2-5.4); White Blood Count 11.8 K/mm3 (4.5-10.0)
[2022-02-27 06:42] LABS: Alanine Aminotransferase 8 U/L (6-35); Albumin Level 2.9 g/dL (3.5-5.1); Alkaline Phosphatase 51 U/L (38-126); Anion Gap 5 mmol/L (8-16); Aspartate Amino Transferase 19 U/L (14-36); Bilirubin,Total 0.9 mg/dL (0.2-1.3); Blood Urea Nitrogen 19 mg/dL (7-17); Calcium 7.9 mg/dL (8.4-10.2); Carbon Dioxide 27 mmol/L (22-30); Chloride 105 mmol/L (98-107); Estimated Glomerular Filt Rate > 60; Glucose 108 mg/dL (65-110); Potassium 3.2 mmol/L (3.4-5.0); Sodium 137 mmol/L (137-145)
[2022-02-27 06:47] LABS: Partial Thromboplastin Time 84.1 SECONDS (22.3-36.8)
--- NOTE | 2022-02-27 08:55 | PM.IMPN ---
Progress Note: A&P Assessment and Plan (1) Acute respiratory failure with hypoxia: Code(s): J96.01 - Acute respiratory failure with hypoxia Status: Acute Assessment and Plan: -apparently had desaturations on 02/25, was started on bipap and moved to IMU -ABG pH 7.359, pCO2 37.3, pO2 76.6, HC03 20.96, O2 94.9 -CXR shows new opacities consistent with atelectasis vs pneumonia -covid/flu swabs negative -CTA 02/26 shows acute PE and likey aspiration PNA -switched azithromycin/rocephin to zosyn for aspiration PNA/UTI coverage -pt is modified code without CPR but will be intubated if it becomes necessary (2) Pulmonary emboli: Code(s): I26.99 - Other pulmonary embolism without acute cor pulmonale Status: Acute Assessment and Plan: -as above -started on heparin drip per protocol (3) Pneumonia: Code(s): J18.9 - Pneumonia, unspecified organism Status: Acute Assessment and Plan: -as above -ST bedside eval ordered (4) Acute UTI: Code(s): N39.0 - Urinary tract infection, site not specified Status: Acute Assessment and Plan: -abnormal UA -urine culture positive for E coli susceptible to rocephin -switched to zosyn to also cover for PNA, also susceptible to zosyn -leukocytosis of 16.5, downtrending, no fevers (5) Alzheimer's disease with late onset: Onset Date: 02/05/19 Code(s): G30.1 - Alzheimer's disease with late onset; F02.80 - Dementia in other diseases classified elsewhere without behavioral disturbance Status: Acute Assessment and Plan: -Continue donepezil -likely exacerbated by acute infection -will continue to monitor mental status (6) Essential hypertension: Code(s): I10 - Essential (primary) hypertension Status: Acute Assessment and Plan: -relatively stable -BP meds on hold while NPO -will consider adding hydralazine with parameters if her BP becomes more elevated (7) Hypokalemia: Code(s): E87.6 - Hypokalemia Status: Acute Assessment and Plan: -mild -monitor and replace (8) Acquired hypothyroidism: Code(s): E03.9 - Hypothyroidism, unspecified Status: Acute Assessment and Plan: -TSH elevated -T4 WNL -Continue Levothyroxine Subjective Date/time seen: 02/27/22 08:55 Interval history: 81-year-old female with past medical history significant for dementia, hypertension, hypothyroidism, dyslipidemia, presented to the ED for increased weakness. Today patient is A/Ox0. She is lethargic this morning. She is still on bipap. Not answering questions but will open her eyes when I speak to her. Got a call from radiology yesterday that she has acute PE and likely aspiration pneumonia. Spoke w/ daughter Moni and provided update. Review of Systems Review of Systems: ROS unobtainable: Yes unobtainable due to mental status Exam Narrative: General: lethargic, sleeping while on bipap, NAD, elderly Eyes: PERRL, no scleral icterus HEENT: NCAT, external ears normal, MMM Respiratory: Lungs CTA anteriorly, on BIPAP Cardiovascular: RRR, no murmur Abdominal: Soft, nontender, non distended, no rebound or guarding Musculoskeletal: Moves all 4 extremities, no edema Neurological: A/Ox0, no facial asymmetry, non verbal at this time Skin: Warm, dry, no rashes Psychiatric: Confused Objective Data Vital Signs Vital Signs: Vital Signs - 24 hr 02/26/22 09:32 02/26/22 09:50 02/26/22 12:00 Temperature 97.7 F Pulse Rate 57 L Respiratory Rate 22 H Blood Pressure 104/72 121/45 L Pulse Oximetry 99 100 02/26/22 14:00 02/26/22 16:00 02/26/22 17:00 Temperature 97.6 F Pulse Rate 58 L 69 Respiratory Rate 20 Blood Pressure 147/60 H Pulse Oximetry 100 100 02/26/22 18:00 02/26/22 19:01 02/26/22 19:27 Temperature 97.1 F L Pulse Rate 66 65 Respiratory Rate 22 H Blood Pressure
--- NOTE | 2022-02-27 09:32 | PCSTNOTE ---
Attempted to see at 9:30, ultrasound was seeing. Will return later this morning for bedside swallow evaluation.
--- NOTE | 2022-02-27 10:22 | PCPTNOTE ---
Patient reports no pain at this time. Patient reports she just wants to be left alone. Patient reports I would like to kick you in your head with attempting to roll or initiate exercises. RN present at this time and agreed patient is unwilling to participate in therapy at this time. Unable to complete therapy session at this time. Will continue per plan of care.
--- NOTE | 2022-02-27 12:06 | PCSTNOTE ---
Please refer to the Bedside Swallow Evaluation in the EMR. Please note, silent aspiration cannot be ruled out at bedside.
--- NOTE | 2022-02-27 12:06 | PCSTNOTE ---
Please refer to the Bedside Swallow Evaluation in the EMR. Please note, silent aspiration cannot be ruled out at bedside.
[2022-02-27 12:17] LABS: Glucose Point of Care 92 mg/dl (65-105)
[2022-02-27 12:57] LABS: Partial Thromboplastin Time 70.2 SECONDS (22.3-36.8)
[2022-02-27] MEDS: KCL 20 MEQ/SW 100 ML 100 ML 50 MEQ IVPB (13:11)
[2022-02-27] MEDS: HEPARIN SODIUM 5,000 UNITS/ML VIAL 1500 UNITS IV PUSH (13:17)
[2022-02-27 18:45] LABS: Glucose Point of Care 83 mg/dl (65-105)
[2022-02-27 20:46] LABS: Partial Thromboplastin Time 77.7 SECONDS (22.3-36.8)
[2022-02-28] VITALS (22 sets, daily range): BP systolic 143–169; BP diastolic 67–99; PULSE 64–105; RESP 16–32; TEMP 35.9–36.6; O2SAT 90–99
[2022-02-28] MEDS: HEPARIN SOD/D5W 100 UNITS/ML 25,000 UNITS/250 ML BAG 8 UNITS IV CONT (03:14)
[2022-02-28 05:55] LABS: Basophils Percent Auto 0.3 % (0.2-1.2); Eosinophils Absolute Auto 0.1 K/mm3 (0-0.3); Eosinophils Percent Auto 0.7 % (0-4.4); Hematocrit 35.2 % (37.0-47.0); Hemoglobin 11.3 g/dL (12.0-15.0); Immature Granulocyte Absolute 0.05 K/mm3 (0.00-0.031); Immature Granulocyte Percent A 0.5 % (0-0.5); Lymphocytes Percent Auto 15.6 % (18.3-44.2); Mean Corpuscular HGB Conc 32.1 g/dl (32-36); Mean Corpuscular Hemoglobin 31.4 pg (26-34); Mean Corpuscular Volume 97.8 fl (80-100); Mean Platelet Volume 11.2 fl (7.4-10.4); Monocytes Absolute Auto 0.9 K/mm3 (0.1-0.6); Monocytes Percent Auto 8.4 % (2.6-8.5); Neutrophils Absolute Auto 7.7 K/mm3 (1.3-6.7); Neutrophils Percent Auto 74.5 % (45.5-73.1); Platelet Count Result 143 k/mm3 (150-375); Red Cell Distribution Width 13.7 % (11.5-14.5); White Blood Count 10.3 K/mm3 (4.5-10.0)
[2022-02-28 06:02] LABS: Partial Thromboplastin Time 83.6 SECONDS (22.3-36.8)
[2022-02-28 06:08] LABS: Alanine Aminotransferase 9 U/L (6-35); Alkaline Phosphatase 54 U/L (38-126); Anion Gap 6 mmol/L (8-16); Aspartate Amino Transferase 21 U/L (14-36); Blood Urea Nitrogen 13 mg/dL (7-17); Calcium 7.9 mg/dL (8.4-10.2); Carbon Dioxide 24 mmol/L (22-30); Chloride 107 mmol/L (98-107); Estimated Glomerular Filt Rate > 60; Glucose 117 mg/dL (65-110); Potassium 3.6 mmol/L (3.4-5.0); Sodium 137 mmol/L (137-145)
[2022-02-28] MEDS: SODIUM CHLORIDE 0.9% IV 1,000 ML 75 ML IV CONT ×2 (06:25→20:49)
--- NOTE | 2022-02-28 08:33 | PM.IMPN ---
Progress Note: A&P Assessment and Plan (1) Acute respiratory failure with hypoxia: Code(s): J96.01 - Acute respiratory failure with hypoxia Status: Acute Assessment and Plan: -apparently had desaturations on 02/25, was started on bipap and moved to IMU -ABG pH 7.359, pCO2 37.3, pO2 76.6, HC03 20.96, O2 94.9 -CXR shows new opacities consistent with atelectasis vs pneumonia -covid/flu swabs negative -CTA 02/26 shows acute PE and likey aspiration PNA -switched azithromycin/rocephin to zosyn for aspiration PNA/UTI coverage -pt is modified code without CPR but will be intubated if it becomes necessary -was on 1L NC yesterday during the day but put back on Bipap again overnight. RN assumed pt had hx of JUSTIN but to my knowledge she does not and she has never been on bipap/cpap prior to this admission. I advised them to discontinued the bipap tonight and try to leave her just on nasal cannula if possible. (2) Pulmonary emboli: Code(s): I26.99 - Other pulmonary embolism without acute cor pulmonale Status: Acute Assessment and Plan: -as above -started on heparin drip per protocol (3) Pneumonia: Code(s): J18.9 - Pneumonia, unspecified organism Status: Acute Assessment and Plan: -as above -ST bedside eval ordered (4) Acute UTI: Code(s): N39.0 - Urinary tract infection, site not specified Status: Acute Assessment and Plan: -abnormal UA -urine culture positive for E coli susceptible to rocephin -switched to zosyn to also cover for PNA, also susceptible to zosyn -leukocytosis of 16.5, downtrending, no fevers (5) Alzheimer's disease with late onset: Onset Date: 02/05/19 Code(s): G30.1 - Alzheimer's disease with late onset; F02.80 - Dementia in other diseases classified elsewhere without behavioral disturbance Status: Acute Assessment and Plan: -Continue donepezil -likely exacerbated by acute infection -will continue to monitor mental status (6) Essential hypertension: Code(s): I10 - Essential (primary) hypertension Status: Acute Assessment and Plan: -relatively stable -BP meds on hold while NPO -will consider adding hydralazine with parameters if her BP becomes more elevated (7) Hypokalemia: Code(s): E87.6 - Hypokalemia Status: Acute Assessment and Plan: -mild -monitor and replace (8) Acquired hypothyroidism: Code(s): E03.9 - Hypothyroidism, unspecified Status: Acute Assessment and Plan: -TSH elevated -T4 WNL -Continue Levothyroxine Subjective Date/time seen: 02/28/22 08:33 Interval history: 81-year-old female with past medical history significant for dementia, hypertension, hypothyroidism, dyslipidemia, presented to the ED for increased weakness. Today patient is A/Ox1. Sleepy but more arousable than she has been the past few days. She is on bipap again currently but apparently was on 1L NC throughout the day yesterday. Review of Systems Review of Systems: ROS unobtainable: Yes unobtainable due to mental status Exam Narrative: General: NAD, non toxic, somnolent but arousable, elderly Eyes: PERRL, no scleral icterus HEENT: NCAT, external ears normal, MMM Respiratory: Lungs CTA anteriorly, on BIPAP Cardiovascular: RRR, no murmur Abdominal: Soft, nontender, non distended, no rebound or guarding Musculoskeletal: Moves all 4 extremities, no edema Neurological: Alert to self only, no facial asymmetry, non verbal at this time Skin: Warm, dry, no rashes Psychiatric: Confused Objective Data Vital Signs Vital Signs: Vital Signs - 24 hr 02/27/22 10:00 02/27/22 12:00 02/27/22 12:19 Temperature 97.5 F L Pulse Rate 75 82 74 Respiratory Rate 16 Blood Pressure 143/85 H Pulse Oximetry 99 99 02/27/22 13:44 02/27/22 14:00 02/27/22 14:13 Temperature Pulse Rate 76 Respiratory Rat
--- NOTE | 2022-02-28 11:13 | PCPTNOTE ---
PT attempted to see patient this morning for therapy, however patient refused to participate. Patient oriented x1 and sleepy. Extra time needed for patient to respond to questions.
[2022-03-01] VITALS (22 sets, daily range): BP systolic 136–157; BP diastolic 70–98; PULSE 89–123; RESP 20–31; TEMP 36.6–37.1; O2SAT 90–97
--- NOTE | 2022-03-01 | ECHO_ITS ---
Patient Info Name: Sana Murrieta Age: 81 years : 1940 Gender: Female Ht: 58 in Wt: 112 lbs BSA: 1.45 m2 BP: 136 / 74 mmHg Heart Rhythm: Sinus Rhythm Technical Quality: Fair Exam Date: 03/01/2022 2:47 PM Exam Location: [facility] Patient Status: Inpatient Admit Date: 02/25/2022 Staff Ordering Physician: Batool Andino APRN Customer Sales Specialist: Colby Hess RDCS, RT Attending Provider: Bethany Patel PA-C Referring Physician: Sina SAWYER; Exam Type: CA echo dop color flow w con Study Info Indications - heart failure Complete two-dimensional, color flow and Doppler transthoracic echocardiogram is performed with contrast to opacify the left ventricle and to improve the deliniation of the left ventricle endocardial borders. Contrast/Agitated Saline Contrast/Ag. Saline: Definity Amount: 2.00 ml Administered By: Colby Hess RDCS Existing IV Access: Yes IV Access Condition: patent with no signs of infiltration Summary 1. Left ventricular chamber dimension is moderately enlarged. 2. Definity contrast administered improved wall motion interpretation. 3. Left ventricular systolic function is severely reduced, estimated at 20-25%. 4. There is mildly increased left ventricular wall thickness. 5. The left ventricular diastolic function is grade III diastolic dysfunction. 6. E/e' 23 is elevated. 7. Left atrial chamber dimension is moderately enlarged. 8. There is severe aortic valve sclerosis. 9. There is mild aortic valve regurgitation. 10. There is critical aortic valve stenosis with a peak velocity of 365.74 cm/s, mean gradient of 30 mmHg, and aortic valve area of 0.57 cm2. The dimensionless index of 0.18 supports severe aortic stenosis with a cardiomyopathy. 11. The mitral valve has severely calcified annulus. 12. There is mild mitral valve regurgitation. 13. Severe pulmonary hypertension, estimated pulmonary arterial systolic pressure is 60 mmHg. Left Ventricle E/e' 23 is elevated. Definity contrast administered improved wall motion interpretation. Left ventricular chamber dimension is moderately enlarged. Left ventricular systolic function is severely reduced, estimated at 20-25%. There is mildly increased left ventricular wall thickness. The left ventricular diastolic function is grade III diastolic dysfunction. Right Ventricle Right ventricular chamber dimension is not well visualized. Left Atria Left atrial chamber dimension is moderately enlarged. Right Atria Right atrial chamber dimension is not well visualized. Aortic Valve There is critical aortic valve stenosis with a peak velocity of 365.74 cm/s, mean gradient of 30 mmHg, and aortic valve area of 0.57 cm2. The dimensionless index of 0.18 supports severe aortic stenosis with a cardiomyopathy. The aortic valve is not well visualized. Cannot determine number of aortic valve leaflets. There is severe aortic valve sclerosis. There is mild aortic valve regurgitation. Pulmonic Valve There is no pulmonic regurgitation. Mitral Valve The mitral valve has severely calcified annulus. There is no mitral valve stenosis. There is mild mitral valve regurgitation. Tricuspid Valve There is no tricuspid valve regurgitation. Severe pulmonary hypertension, estimated pulmonary arterial systolic pressure is 60 mmHg. Pericardium/Pleural There is no pericardial effusion. Inferior Vena Cava Normal inferior vena cava with >50% co
[2022-03-01] MEDS: LEVOTHYROXINE SODIUM 88 MCG TABLET PO (06:32)
[2022-03-01 07:20] LABS: Partial Thromboplastin Time 43.1 SECONDS (22.3-36.8)
[2022-03-01] MEDS: HEPARIN SODIUM 5,000 UNITS/ML VIAL 3500 UNITS IV PUSH (07:52)
[2022-03-01] MEDS: MEMANTINE HCL XR 28 MG CAP PO (07:56)
[2022-03-01] MEDS: DONEPEZIL HCL 10 MG TABLET PO (07:56)
[2022-03-01] MEDS: SIMVASTATIN 20 MG TABLET PO (07:56)
[2022-03-01] MEDS: FAMOTIDINE 20 MG TABLET PO (07:56)
--- NOTE | 2022-03-01 09:32 | PM.IMPN ---
Progress Note: A&P Assessment and Plan (1) Acute respiratory failure with hypoxia: Code(s): J96.01 - Acute respiratory failure with hypoxia Status: Acute Assessment and Plan: -desaturations noted on 02/25- started on bipap and moved to IMU; ABG pH 7.359, pCO2 37.3, pO2 76.6, HC03 20.96, O2 94.9; CXR shows new opacities consistent with atelectasis vs pneumonia; covid/flu swabs negative -CTA 02/26 shows acute PE and likey aspiration PNA - azithromycin/rocephin DC'd and changed to zosyn IV Q6 hours for aspiration PNA/UTI coverage -pt is modified code without CPR but will be intubated if it becomes necessary -02/27 patient was on 1L NC during the day but put back on Bipap again overnight. No known h/o JUSTIN. -03/01 patient desaturating on supplemental O2 with minimal exertion. Repeat CXR as above with small pleural effusion and worsening pneumonia. Trial lasix 20 mg IV x1. Patient with ~50 mL intake, -700 mL urine output but question accuracy as it appears she has been on IV fluids since 02/26. Hold IV fluids for now. Add xopenex nebs Q6. Nursing does not think patient can follow direction for incentive spirometry; encourage cough & deep breath. Vancomycin IV pharmacy to dose added. RT to induce sputum & gram stain. -Check transthoracic echocardiogram for multiple PEs, cardiomegaly on CXR and evaluation dyspnea (2) Pulmonary emboli: Code(s): I26.99 - Other pulmonary embolism without acute cor pulmonale Status: Acute Assessment and Plan: -as above -continue on heparin drip per protocol -Transition to oral DOAC prior to discharge. -Check TTE as above (3) Pneumonia: Code(s): J18.9 - Pneumonia, unspecified organism Status: Acute Assessment and Plan: -On Zosyn, started 02/26/22 (day 4). -ST bedside eval suggests no s/s aspiration. -03/01/22 Vancomycin IV pharmacy to dose added for concern for worsening pneumonia on chest x-ray. Patient has increased o2 need, mildly increased WBC and dysnpea. (4) Acute UTI: Code(s): N39.0 - Urinary tract infection, site not specified Status: Acute Assessment and Plan: -abnormal UA -urine culture positive for E coli susceptible to Rocephin & Zosyn. -03/01/22 Day 6 of 7 abx therapy. (5) Alzheimer's disease with late onset: Onset Date: 02/05/19 Code(s): G30.1 - Alzheimer's disease with late onset; F02.80 - Dementia in other diseases classified elsewhere without behavioral disturbance Status: Acute Assessment and Plan: -Continue donepezil -likely exacerbated by acute infection -will continue to monitor mental status -Reorient as needed. (6) Essential hypertension: Code(s): I10 - Essential (primary) hypertension Status: Acute Assessment and Plan: -stable -continue lisinopril, Toprol XL at current doses. -03/01/22 Lasix 20 mg IV x1 given today (7) Hypokalemia: Code(s): E87.6 - Hypokalemia Status: Acute Assessment and Plan: -K 3.0, Mag 1.9 -Replaced with 40 mEQ PO x1. Repeat BMP & Mag tomorrow. (8) Acquired hypothyroidism: Code(s): E03.9 - Hypothyroidism, unspecified Status: Acute Assessment and Plan: -TSH elevated & T4 WNL -Continue Levothyroxine Time Spent With Patient Time: 15-25 min Subjective Date/time seen: 03/01/22 09:32 Interval history: 81-year-old female with past medical history significant for dementia, hypertension, hypothyroidism, dyslipidemia, presented to the ED for increased weakness. Today patient is A/Ox1. She was found sitting upright in bed eating breakfast. Nursing reports the patient desaturated to the 80s during bed bath, requiring 15L high-flow nasal cannula to keep sats 89-91%. She is tachypneic and HR ST 118 bpm. Patient reports feeling tired this morning. Exam Narrative: General: Moderate respiratory distress, non toxic, tired appearing older adult female.
[2022-03-01 10:04] LABS: Hematocrit 38.6 % (37.0-47.0); Hemoglobin 12.3 g/dL (12.0-15.0); Mean Corpuscular HGB Conc 31.9 g/dl (32-36); Mean Corpuscular Hemoglobin 31.3 pg (26-34); Mean Corpuscular Volume 98.2 fl (80-100); Mean Platelet Volume 11.8 fl (7.4-10.4); Platelet Count Result 166 k/mm3 (150-375); Red Blood Count 3.93 M/mm3 (4.2-5.4); Red Cell Distribution Width 13.7 % (11.5-14.5); White Blood Count 11.9 K/mm3 (4.5-10.0)
[2022-03-01 10:10] LABS: Anion Gap -3 mmol/L (8-16); Blood Urea Nitrogen 8 mg/dL (7-17); Calcium 8.1 mg/dL (8.4-10.2); Carbon Dioxide 34 mmol/L (22-30); Chloride 100 mmol/L (98-107); Estimated Glomerular Filt Rate > 60; Glucose 145 mg/dL (65-110); Sodium 131 mmol/L (137-145)
[2022-03-01] MEDS: HEPARIN SOD/D5W 100 UNITS/ML 25,000 UNITS/250 ML BAG 10 UNITS IV CONT (10:19)
[2022-03-01] MEDS: FUROSEMIDE INJ 40 MG/4 ML VIAL 20 MG IV PUSH (10:35)
[2022-03-01 11:14] LABS: Magnesium 1.9 mg/dL (1.6-2.3)
[2022-03-01] MEDS: POTASSIUM CHLORIDE 20 MEQ PACKET (FOR LIQUID) 40 MEQ PO (11:48)
[2022-03-01] MEDS: SODIUM CHLORIDE 0.9% IV 1,000 ML 75 ML IV CONT (11:48)
[2022-03-01] MEDS: LEVALBUTEROL NEB 1.25 MG/3 ML 0.63 MG INHALATION ×2 (13:31→20:16)
[2022-03-01 14:20] LABS: Partial Thromboplastin Time 115.4 SECONDS (22.3-36.8)
[2022-03-01] MEDS: PERFLUTREN LIPID MICROSPHERES 1.5 ML VIAL DILUTED TO 10 ML TOTAL VOLUME IV PUSH (15:00)
--- NOTE | 2022-03-01 15:00 | IVDEFINITY ---
Prior to administration of IV Definity the patient was educated on the risks and benefits of the imaging enhancing agent including potential adverse side effects. The patient verbalized understanding. Allergies were verified. No exclusion criteria were identified and at least one of the following inclusion criteria were met: 1) physician request, 2) patient technically difficult to image (per the [place] [employer] guidelines of two or more segments not discernable within the apical view), or 3) questionable left ventricular function. ?
[2022-03-01 16:54] LABS: NT Pro B Type Natriuretic Pept 33800 pg/mL (5-100)
[2022-03-01] MEDS: SACCHAROMYCES BOULARDII 250 MG CAPSULE PO (17:35)
[2022-03-01 20:43] LABS: Partial Thromboplastin Time 69.7 SECONDS (22.3-36.8)
[2022-03-01] MEDS: HEPARIN SODIUM 5,000 UNITS/ML VIAL 1500 UNITS IV PUSH (20:58)
[2022-03-02] VITALS (26 sets, daily range): BP systolic 105–129; BP diastolic 49–78; PULSE 61–91; RESP 20–33; TEMP 36.5–37.1; O2SAT 91–99; BMI 10.0
[2022-03-02] MEDS: LEVALBUTEROL NEB 1.25 MG/3 ML 0.63 MG INHALATION ×4 (02:23→21:23)
[2022-03-02 03:25] LABS: Hematocrit 38.6 % (37.0-47.0); Hemoglobin 12.5 g/dL (12.0-15.0); Mean Corpuscular HGB Conc 32.4 g/dl (32-36); Mean Corpuscular Hemoglobin 31.3 pg (26-34); Mean Corpuscular Volume 96.7 fl (80-100); Mean Platelet Volume 11.1 fl (7.4-10.4); Platelet Count Result 164 k/mm3 (150-375); Red Blood Count 3.99 M/mm3 (4.2-5.4); Red Cell Distribution Width 13.6 % (11.5-14.5); White Blood Count 13.3 K/mm3 (4.5-10.0)
[2022-03-02 03:29] LABS: Anion Gap 4 mmol/L (8-16); Blood Urea Nitrogen 10 mg/dL (7-17); Calcium 7.9 mg/dL (8.4-10.2); Carbon Dioxide 29 mmol/L (22-30); Chloride 100 mmol/L (98-107); Estimated Glomerular Filt Rate > 60; Glucose 134 mg/dL (65-110); Magnesium 1.8 mg/dL (1.6-2.3); Sodium 133 mmol/L (137-145)
[2022-03-02 03:30] LABS: Partial Thromboplastin Time 92.3 SECONDS (22.3-36.8)
[2022-03-02] MEDS: LEVOTHYROXINE SODIUM 88 MCG TABLET PO (05:33)
--- NOTE | 2022-03-02 05:33 | PCRCNOTE ---
RT performed 0500 sputum induction with no success via coughing. RT induced sputum by using an NT suction catheter. Specimen collected and given to Anita Cleary RN to send to lab.
--- NOTE | 2022-03-02 07:01 | PM.IMPN ---
Progress Note: A&P Assessment and Plan (1) Acute respiratory failure with hypoxia: Code(s): J96.01 - Acute respiratory failure with hypoxia Status: Acute Assessment and Plan: -desaturations noted on 02/25- started on bipap and moved to IMU; ABG pH 7.359, pCO2 37.3, pO2 76.6, HC03 20.96, O2 94.9; CXR shows new opacities consistent with atelectasis vs pneumonia; covid/flu swabs negative -CTA 02/26 shows acute PE and likey aspiration PNA - azithromycin/rocephin DC'd and changed to zosyn IV Q6 hours for aspiration PNA/UTI coverage -pt is modified code without CPR but will be intubated if it becomes necessary -02/27 patient was on 1L NC during the day but put back on Bipap again overnight. No known h/o JUSTIN. -03/01 patient desaturating on supplemental O2 with minimal exertion. Repeat CXR as above with small pleural effusion and worsening pneumonia. Trial lasix 20 mg IV x1. Patient with ~50 mL intake, -700 mL urine output but question accuracy as it appears she has been on IV fluids since 02/26. Hold IV fluids for now. Add xopenex nebs Q6. Nursing does not think patient can follow direction for incentive spirometry; encourage cough & deep breath. Vancomycin IV pharmacy to dose added. RT to induce sputum & gram stain. -03/02 Transthoracic echocardiogram as above showing severe , systolic and diastolic CHF with EF 25%, recent desaturation likely secondary to acute decompensated heart failure. Cardiology consulted. Continue diuresis. Daily weights and strict I&O monitoring. (2) Aortic stenosis, severe: Code(s): I35.0 - Nonrheumatic aortic (valve) stenosis Status: Acute Assessment and Plan: Found on TTE. Cardiology consulted and appreciate recommendations. (3) Pulmonary emboli: Code(s): I26.99 - Other pulmonary embolism without acute cor pulmonale Status: Acute Assessment and Plan: -as above -continue on heparin drip per protocol -Transition to oral Eliquis 10 mg PO BID x 7 days, then 5 mg BID. Start at 1700 tonight. DC heparin drip when first dose Eliquis given. (4) CHF (congestive heart failure): Qualifiers: Heart failure type: combined systolic and diastolic Heart failure chronicity: acute on chronic Qualified Code(s): I50.43 - Acute on chronic combined systolic (congestive) and diastolic (congestive) heart failure Code(s): I50.9 - Heart failure, unspecified Status: Acute Assessment and Plan: EF 20-25%, LV chamber enlarged, grade 3 diastolic dysfunction, severe/critical stenosis and severe pulmonary hypertension RSVP 60 mmhg. -Cardiology consulted and appreciate recommendations. -Continue gentle diuresis with lasix 40 mg IVP daily. -Daily weights & strict I&O monitoring. (5) Pneumonia: Code(s): J18.9 - Pneumonia, unspecified organism Status: Acute Assessment and Plan: -On Zosyn, started 02/26/22 (day 5). She received Rocephin/Azithromycin 02/24-02/26. -ST bedside eval suggests no s/s aspiration. -03/01/22 Vancomycin IV pharmacy to dose added for concern for worsening pneumonia on chest x-ray. Patient has increased o2 need, mildly increased WBC and dysnpea. -03/02/22 WBC 13.3 and afebrile. Hypoxia likely secondary to CHF exac. Repeat CXR tomorrow morning and DC antibiotics. She has completed at total of 7-days antibiotics. (6) Acute UTI: Code(s): N39.0 - Urinary tract infection, site not specified Status: Acute Assessment and Plan: -abnormal UA -urine culture positive for E coli susceptible to Rocephin & Zosyn. -03/01/22 Day 6 of 7 abx therapy. -03/02/22 Day 7 of 7. Antibiotics stopped. (7) Alzheimer's disease with late onset: Onset Date: 02/05/19 Code(s): G30.1 - Alzheimer's disease with late onset; F02.80 - Dementia in other diseases classified elsewhere without behavioral disturbance Status: Acute Assessment and Plan: -Continue donepezil -likely exacerbated by acute infecti
[2022-03-02] MEDS: FUROSEMIDE INJ 40 MG/4 ML VIAL IV PUSH (09:03)
[2022-03-02] MEDS: MAGNESIUM SULF 1 GM/D5W 100 ML 1 GM/100 ML BAG IVPB (09:03)
[2022-03-02] MEDS: POTASSIUM CHLORIDE 20 MEQ PACKET (FOR LIQUID) 40 MEQ PO (09:04)
[2022-03-02] MEDS: SACCHAROMYCES BOULARDII 250 MG CAPSULE PO ×2 (09:22→17:41)
[2022-03-02] MEDS: FAMOTIDINE 20 MG TABLET PO (09:22)
[2022-03-02] MEDS: MEMANTINE HCL XR 28 MG CAP PO (09:22)
[2022-03-02] MEDS: DONEPEZIL HCL 10 MG TABLET PO (09:22)
[2022-03-02] MEDS: SIMVASTATIN 20 MG TABLET PO (09:22)
[2022-03-02 09:34] LABS: Partial Thromboplastin Time 68.1 SECONDS (22.3-36.8)
--- NOTE | 2022-03-02 10:17 | PM.CNCAR ---
Assessment and Plan Assessment and plan (1) Aortic stenosis, severe: Code(s): I35.0 - Nonrheumatic aortic (valve) stenosis Status: Acute Plan This is an elderly lady who unfortunately is significantly demented who has been found to have severe aortic valve disease and severe left ventricular systolic dysfunction. Probably decompensated because she did receive some IV fluid for few days while she is in the hospital and her ALYSSA-inhibitor and beta-maciej have been on hold. I would agree with the daughter/power of refrigeration engine operator decision not to pursue treatment of her aortic stenosis with aortic valve replacement given her dementia and poor overall condition. She is being diuresed which is appropriate. I am going to try starting her on modest doses of carvedilol and Entresto today. Hopefully she will hemodynamically tolerate these. Her dementia/quality of life is very poor so I indicated to her power of refrigeration engine operator that I completely agree with the decision to avoid aortic valve replacement. They understand that her prognosis of survival for very long is not expected given her poor LV function and critical aortic valve stenosis. Given this situation in my opinion DNR orders would be appropriate Sinan Bernard MD [facility] History of Present Illness History of Present Illness Consult date/time: 03/02/22 10:17 Reason For Visit: UTI Narrative: This is a 81-year-old woman I am seeing at the request of the hospitalist because of congestive heart failure and findings that were noted on an echocardiogram that was done yesterday. The patient entered this hospital on 02/24/2022 in referral from her residence because of symptoms of generalized weakness and difficulty with the family a caring for her she apparently has not been eating or drinking well and was suspected to possibly have a urinary tract infection. She has a diagnosis of hypertension and treated hypothyroidism. She also has a significant amount of dementia. She was given some IV fluid for the 1st several days in the hospital and her lisinopril and metoprolol home medications have apparently been on hold. The last couple of days she has developed shortness of breath requiring transfer to the IMU with pulmonary congestion being noted. She has been given some diuretics with improvement and this resulted in an echocardiogram being done. The study was done yesterday and interpreted by Dr. Padilla. By report in the chart it demonstrates very poor left ventricular systolic function with LV dilatation and ejection fraction of about 20% she also has critical aortic valve stenosis with a valve area of 0.5. With these results we have been consulted to see her today. Upon entering the room to see year she does not appear to be in any distress she is responsive with opening her eyes but cannot hold a conversation or answer questions or follow commands. According to the chart this is her baseline mental status with her dementia. The only complaint I can get out of her at this time is that she is tired. According to the chart she is and not hypotensive her systolic blood pressure tends to be in the 120s most of the time and according to her low electrolytes her creatinine appears to be normal. Because of the patient's dementia I did get the name of her daughter/power of refrigeration engine operator and spoke to her on the telephone at some length regarding these echocardiographic findings. The patient's daughter does not wish to consider aggressive treatment of her aortic valve disease with aortic valve replacement because of her dementia and poor quality of life. In my opinion this is a very appropriate decision Review of Systems Review of Systems: ROS unobtainable: Yes unobtainable due to mental status [facility] Family History Family History Mother Family history of malignant neoplasm Social History Social History
[2022-03-02] MEDS: HEPARIN SOD/D5W 100 UNITS/ML 25,000 UNITS/250 ML BAG 11 UNITS IV CONT (11:23)
[2022-03-02] MEDS: HEPARIN SODIUM 5,000 UNITS/ML VIAL 1500 UNITS IV PUSH (11:23)
[2022-03-02] MEDS: POTASSIUM CHLORIDE INJ 40 MEQ in SODIUM CHLORIDE 0.9% IV 500 ML 130 MEQ IVPB (12:28)
[2022-03-02 18:38] LABS: Toxigenic C. Diff NEGATIVE (NEGATIVE)
[2022-03-02 18:53] LABS: Potassium 3.3 mmol/L (3.4-5.0)
[2022-03-02 18:59] LABS: Partial Thromboplastin Time 90.4 SECONDS (22.3-36.8)
[2022-03-02] MEDS: APIXABAN 5 MG TABLET 10 MG PO (20:36)
[2022-03-02] MEDS: carvediloL 3.125 MG TABLET PO (20:36)
[2022-03-02] MEDS: SACUBITRIL/VALSARTAN 12-13 MG TABLET 1 TAB PO (20:37)
--- NOTE | 2022-03-02 22:48 | PCRCNOTE ---
Pt was started on overnight O2 study on . Almost immediately, pt O2 saturation dropped to 85% so 1L NC was administered. Oxygen saturation increased to 91%.
[2022-03-03] VITALS (11 sets, daily range): BP systolic 124–142; BP diastolic 48–58; PULSE 63–73; RESP 20–24; TEMP 36.6–36.8; O2SAT 92–97
--- NOTE | 2022-03-03 02:23 | PCRCNOTE ---
Pt checked while on overnight O2 assessment. Pt found to have removed both the pulse oximeter probe for the study as well as the pulse oximetry probe that displayed data at nurses station. Both pulse ox probes were placed back on patient.
[2022-03-03 06:36] LABS: Anion Gap 6 mmol/L (8-16); Blood Urea Nitrogen 12 mg/dL (7-17); Calcium 7.6 mg/dL (8.4-10.2); Carbon Dioxide 28 mmol/L (22-30); Chloride 102 mmol/L (98-107); Estimated Glomerular Filt Rate > 60; Glucose 108 mg/dL (65-110); Sodium 136 mmol/L (137-145)
--- NOTE | 2022-03-03 07:31 | P.PNIM_ITS ---
Progress Note: A&P Assessment and Plan (1) Acute respiratory failure with hypoxia: Code(s): J96.01 - Acute respiratory failure with hypoxia Status: Acute Assessment and Plan: -desaturations noted on 02/25- started on bipap and moved to IMU; ABG pH 7.359, pCO2 37.3, pO2 76.6, HC03 20.96, O2 94.9; CXR shows new opacities consistent with atelectasis vs pneumonia; covid/flu swabs negative -CTA 02/26 shows acute PE and likey aspiration PNA - azithromycin/rocephin DC'd and changed to zosyn IV Q6 hours for aspiration PNA/UTI coverage -pt is modified code without CPR but will be intubated if it becomes necessary -02/27 patient was on 1L NC during the day but put back on Bipap again overnight. No known h/o JUSTIN. -03/01 patient desaturating on supplemental O2 with minimal exertion. Repeat CXR as above with small pleural effusion and worsening pneumonia. Trial lasix 20 mg IV x1. Patient with ~50 mL intake, -700 mL urine output but question accuracy as it appears she has been on IV fluids since 02/26. Hold IV fluids for now. Add xopenex nebs Q6. Nursing does not think patient can follow direction for incentive spirometry; encourage cough & deep breath. Vancomycin IV pharmacy to dose added. RT to induce sputum & gram stain. -03/02 Transthoracic echocardiogram as above showing severe , systolic and diastolic CHF with EF 25%, recent desaturation likely secondary to acute decompensated heart failure. Cardiology consulted. Continue diuresis. Daily weights and strict I&O monitoring. (2) Aortic stenosis, severe: Code(s): I35.0 - Nonrheumatic aortic (valve) stenosis Status: Acute Assessment and Plan: Found on TTE. Cardiology consulted and appreciate recommendations. (3) Pulmonary emboli: Code(s): I26.99 - Other pulmonary embolism without acute cor pulmonale Status: Acute Assessment and Plan: -as above -continue on heparin drip per protocol -Transition to oral Eliquis 10 mg PO BID x 7 days, then 5 mg BID. Start at 1700 tonight. DC heparin drip when first dose Eliquis given. (4) CHF (congestive heart failure): Qualifiers: Heart failure type: combined systolic and diastolic Heart failure chronicity: acute on chronic Qualified Code(s): I50.43 - Acute on chronic combined systolic (congestive) and diastolic (congestive) heart failure Code(s): I50.9 - Heart failure, unspecified Status: Acute Assessment and Plan: EF 20-25%, LV chamber enlarged, grade 3 diastolic dysfunction, severe/critical s tenosis and severe pulmonary hypertension RSVP 60 mmhg. -Cardiology consulted and appreciate recommendations. -Continue gentle diuresis with lasix 40 mg IVP daily. -Daily weights & strict I&O monitoring. (5) Pneumonia: Code(s): J18.9 - Pneumonia, unspecified organism Status: Acute Assessment and Plan: -On Zosyn, started 02/26/22 (day 5). She received Rocephin/Azithromycin 02/24- 02/26. -ST bedside eval suggests no s/s aspiration. -03/01/22 Vancomycin IV pharmacy to dose added for concern for worsening pneumonia on chest x-ray. Patient has increased o2 need, mildly increased WBC and dysnpea. -03/02/22 WBC 13.3 and afebrile. Hypoxia likely secondary to CHF exac. Repeat CXR tomorrow morning and DC antibiotics. She has completed at total of 7-days antibiotics. (6) Acute UTI: Code(s): N39.0 - Urinary tract infection, site not specified Status: Acute Assessment and Plan: -abnormal UA -urine culture positive for E coli susceptible to Rocephin & Zosyn. -03/01/22 Day 6 of 7 abx therapy. -03/02/22 Day 7 of 7. Antibiotics stopped.
[2022-03-03] MEDS: LEVALBUTEROL NEB 1.25 MG/3 ML 0.63 MG INHALATION ×2 (08:20→14:16)
--- NOTE | 2022-03-03 09:55 | PM.PNCARD ---
Progress Note: A&P Assessment and Plan (1) Aortic stenosis, severe: Code(s): I35.0 - Nonrheumatic aortic (valve) stenosis Status: Acute Assessment and Plan: Severe. Daughter/POA has decided not to pursue treatment because of her dementia and overall condition Continue coreg Continue Entresto Remains hemodynamically stable - monitor BP closely Plan to discharge to SNF with transition to hospice (2) CHF (congestive heart failure): Qualifiers: Heart failure chronicity: acute on chronic Heart failure type: combined systolic and diastolic Qualified Code(s): I50.43 - Acute on chronic combined systolic (congestive) and diastolic (congestive) heart failure Code(s): I50.9 - Heart failure, unspecified Status: Acute Assessment and Plan: Severe LV systolic dysfunction. Compensated. Continue current medical regimen. (3) Alzheimer's disease with late onset: Onset Date: 02/05/19 Code(s): G30.1 - Alzheimer's disease with late onset; F02.80 - Dementia in other diseases classified elsewhere without behavioral disturbance Status: Acute Assessment and Plan: Advanced. Subjective Date/time seen: 03/03/22 09:55 Cardiology follow up for aortic stenosis No acute events overnight. She is somnolent this morning. Review of Systems Review of Systems: ROS unobtainable: Yes unobtainable due to mental status Exam Const: General: comfortable, no acute distress and lethargic Orientation/consciousness: No patient oriented x3 Other: Elderly very frail lady with dementia essentially nonverbal. Only responds to stimuli this morning HENMT: Head: normal to inspection Mouth: Yes dry mucous membranes Eyes: Sclera: sclerae normal Neck: Neck: supple and no JVD Resp: Effort & Inspection: normal respiratory effort Auscultation: rales Other: Mild basilar crackles are noted Cardio: Rate: regular rate Rhythm: regular rhythm Heart sounds: Murmur heart sound present systolic harsh, III/ and at the base GI: Auscultation: normal bowel sounds Urinary Catheter: Urinary Catheter: patent and draining Skin: General skin exam: normal color Neuro: Other: Very slow cognition and patient appears to be in no distress he is essentially nonverbal Extrem: General: normal to inspection and no edema Objective Data Vital Signs Vital Signs: Vital Signs - 24 hr 03/02/22 10:00 03/02/22 12:00 03/02/22 13:20 Temperature 37.1 C Pulse Rate 81 85 79 Respiratory Rate 32 H 26 H Blood Pressure 128/63 Pulse Oximetry 95 Oxygen Delivery Oxygen Flow Rate 03/02/22 13:32 03/02/22 12:00 03/02/22 12:00 Temperature Pulse Rate 80 78 Respiratory Rate 28 H Blood Pressure Pulse Oximetry 95 Oxygen Delivery High Flow Nasal Cannula Oxygen Flow Rate 2 03/02/22 14:00 03/02/22 16:00 03/02/22 16:00 Temperature 37.0 C Pulse Rate 81 80 80 Respiratory Rate 26 H Blood Pressure 105/54 L Pulse Oximetry 94 Oxygen Delivery Oxygen Flow Rate 03/02/22 16:00 03/02/22 18:00 03/02/22 19:58 Temperature 36.7 C Pulse Rate 91 76 Respiratory Rate 24 H Blood Pressure 122/56 L Pulse Oximetry 96 95 Oxygen Delivery High Flow Nasal Cannula Oxygen Flow Rate 2 03/02/22 20:00 03/02/22 21:24 03/02/22 21:24 Temperature Pulse Rate 70 Respiratory Rate 24 H Blood Pressure Pulse Oximetry 95 95 Oxygen Delivery High Flow Nasal Cannula Nasal Cannula Oxygen Flow Rate 2 2 03/02/22 21:33 03/02/22 20:00 03/02/22 22:00 Temperature Pulse Rate 73 81 61 Respiratory Rate 24 H Blood Pressure Pulse Oximetry Oxygen Delivery Oxygen Flow Rate 03/02/22 22:40 03/02/22 23:23 03/03/22 00:00 Temperature 36.5 C Pulse Rate 71 Respiratory Rate 22 H Blood Pressure 124/49 L Pulse Oximetry 91 92 92 Oxygen Delivery Nasal Cannula High Flow Nasal Cannula Oxygen Flow Rate 1 2 03/03/22 00:00 05
[2022-03-03] MEDS: APIXABAN 5 MG TABLET 10 MG PO (10:04)
[2022-03-03] MEDS: POTASSIUM CHLORIDE 20 MEQ PACKET (FOR LIQUID) 40 MEQ PO (10:04)
[2022-03-03] MEDS: carvediloL 3.125 MG TABLET PO (10:04)
[2022-03-03] MEDS: SACUBITRIL/VALSARTAN 12-13 MG TABLET 1 TAB PO (10:06)
--- NOTE | 2022-03-03 13:51 | PM.DS ---
DS: Admitting Diagnosis Discharge Date 03/03/2022 1428 Admitting Diagnosis UTI Generailzed weakness DS: Discharge Diagnosis Discharge Diagnosis (1) Acute respiratory failure with hypoxia: Code(s): J96.01 - Acute respiratory failure with hypoxia Status: Acute (2) Pulmonary emboli: Code(s): I26.99 - Other pulmonary embolism without acute cor pulmonale Status: Acute (3) Aortic stenosis, severe: Code(s): I35.0 - Nonrheumatic aortic (valve) stenosis Status: Acute (4) CHF (congestive heart failure): Qualifiers: Heart failure type: combined systolic and diastolic Heart failure chronicity: acute on chronic Qualified Code(s): I50.43 - Acute on chronic combined systolic (congestive) and diastolic (congestive) heart failure Code(s): I50.9 - Heart failure, unspecified Status: Acute (5) Pneumonia: Code(s): J18.9 - Pneumonia, unspecified organism Status: Acute (6) Pulmonary hypertension: Onset Date: ~02/2022 Code(s): I27.20 - Pulmonary hypertension, unspecified Status: Acute (7) Dvt femoral (deep venous thrombosis): Qualifiers: Chronicity: acute Laterality: right Qualified Code(s): I82.411 - Acute embolism and thrombosis of right femoral vein Code(s): I82.419 - Acute embolism and thrombosis of unspecified femoral vein Status: Acute (8) Hypokalemia: Code(s): E87.6 - Hypokalemia Status: Acute (9) Acute UTI: Code(s): N39.0 - Urinary tract infection, site not specified Status: Acute (10) Weakness: Code(s): R53.1 - Weakness Status: Acute (11) Acquired hypothyroidism: Code(s): E03.9 - Hypothyroidism, unspecified Status: Chronic (12) Alzheimer's disease with late onset: Onset Date: 02/05/19 Code(s): G30.1 - Alzheimer's disease with late onset; F02.80 - Dementia in other diseases classified elsewhere without behavioral disturbance Status: Chronic (13) Essential hypertension: Code(s): I10 - Essential (primary) hypertension Status: Chronic DS: Summary Hospital Course Reason for hospitalization: Generalized weakness & UTI Hospital Course: Sana Murrieta is a 81-year-old female with past medical history significant for dementia, hypertension, hypothyroidism, and dyslipidemia.? She was brought to the emergency room, from home by family, for evaluation of progressive weakness. She was requiring more assistance, which was unusual, per family. Preliminary workup in the ED, was significant for urinalysis with numerous WBCs present.? Patient was admitted to the medical floor on 02/24/22 and treated with IV Rocephin for UTI. Lab work was obtained showing elevated TSH, however T4 levels remained normal. She was lethargic and remained confused. Urine culture demonstrated >100,000 CFU E.coli sensitive to Rocephin. On 02/26/22, she was noted to desaturate on room air, requiring application of bipap. She was moved to IMU for closer monitoring. ABG showed hypoxemia with PaO2 76.6, but otherwise normal pH, PaCO2 and bicarb. CXR on 02/26 showed new opacities concerning for pneumonia. Azithromycin was added for pneumonia coverage. Her family at that time requested modified code status of CPR, but no intubation. CTA chest on 02/26/22 was significant for bilateral acute PEs and possible aspiration pneumonia. Rocephin and Azithromycin were discontinued. Zosyn 3.372 was initiated for pneumonia coverage. Speech consult was negative for dysphagia or diet modifications. IV fluids were started on 02/26/22 while patient was NPO. Heparin drip protocol was ordered for acute PEs. 02/27/22 Venous doppler BLE was also positive for non-occlusive right deep femoral vein, common femoral, and external iliac DVTs. The patient had acute worsening of respiratory status on 03/01/22. She was in respiratory distress with tachypnea and accessory muscle use requiring up to 15L high-flow miryam
== END 2022-03-03 17:14 | DRG 689 ==
LOC: ANHED 16:53 → ANH3MEDSUR 17:27 → ANHIMU 03-01 13:02 → ANH3MEDSUR 03-04 09:39 → ANHIMU 03-04 09:39
PROVIDERS: Internal Medicine; Physician Assistant; Admitting Provider Internal Medicine; Emergency Provider Emergency Medicine; PCP Internal Medicine; Visit Provider Nurse Practitioner Family
DX: N39.0 Urinary tract infection, site not specified (principal); J96.01 Acute respiratory failure with hypoxia; I26.99 Other pulmonary embolism without acute cor pulmonale; I50.41 Acute combined systolic (congestive) and diastolic (congestive) heart failure; J18.9 Pneumonia, unspecified organism; I82.411 Acute embolism and thrombosis of right femoral vein; I82.421 Acute embolism and thrombosis of right iliac vein; R53.1 Weakness; G30.1 Alzheimer's disease with late onset; F02.80 Dementia in other diseases classified elsewhere, unspecified severity, without behavioral disturbance, psychotic disturbance, mood disturbance, and anxiety; K21.9 Gastro-esophageal reflux disease without esophagitis; Z20.822 Contact with and (suspected) exposure to COVID-19; Z79.899 Other long term (current) drug therapy; Z80.9 Family history of malignant neoplasm, unspecified; E03.9 Hypothyroidism, unspecified; E78.5 Hyperlipidemia, unspecified; E87.6 Hypokalemia; G47.33 Obstructive sleep apnea (adult) (pediatric); Z23 Encounter for immunization; B96.20 Unspecified Escherichia coli [E. coli] as the cause of diseases classified elsewhere; I27.20 Pulmonary hypertension, unspecified; I11.0 Hypertensive heart disease with heart failure; I35.0 Nonrheumatic aortic (valve) stenosis
CPT/HCPCS: 36415; 36600; 70450; 71045; 71275; 74177; 80048; 80053; 81001; 82140; 82805; 82948; 83605; 83735; 83880; 84132; 84439; 84443; 84480; 85025; 85027; 85055; 85610; 85730; 87070; 87077; 87086; 87088; 87186; 87205; 87493; 87502; 92610; 93005; 93306; 93970; 94002; 94003; 94640; 94762; 96361; 96365; 97110; 97161; 97165; 97530; 97535; 99285; A9270; C8929; C9803; G0378; J0456; J0696; J1644; J1940; J2543; J3370; J3475; J3480; J7030; J7040; Q9957; Q9967; U0003; U0005

== ENCOUNTER 2022-03-10 04:32 | Emergency (ER) | payer MEDICARE, OTHER, SELFPAY ==
--- NOTE | ~2022-03-10 | CT_ITS ---
EXAMINATION: CT brain wo con DATE: 03/10/2022 04:57 INDICATION: Head injury status post fall. TECHNIQUE: Computed tomography (CT) of the head was performed without intravenous contrast. The dose- length product was 681.00 mGy-cm. Automated exposure control and iterative reconstruction technique w ere employed. COMPARISON: CT dated 02/24/2022 FINDINGS: Generalized atrophy. There are scattered moderate periventricular and subcortical white mat ter changes, most likely related to small vessel ischemic disease (microangiopathy). There is a right frontal scalp hematoma. No acute intracranial hemorrhage, infarction, mass or mass e ffect. No depressed skull fractures. Paranasal sinuses and mastoids are pneumatized. There is intracr anial atherosclerosis. IMPRESSION: 1. No acute intracranial abnormality. 2: Chronic age-related findings. Reviewed, dictated and finalized at location A.
[2022-03-10 04:34] VITALS: BP 172/73; RESP 16; TEMP 36.3
[2022-03-10 06:20] VITALS: BP 148/51; PULSE 64; RESP 18; O2SAT 96
--- NOTE | 2022-03-10 06:22 | ED.FALL ---
HPI - Fall General Chief Complaint: Fall Stated Complaint: glf eliquis Time Seen by Provider: 03/10/22 04:32 History of Present Illness HPI Narrative: Patient is an 81-year-old female who presents ER status post unwitnessed fall at her intermediate. Patient has dementia and cannot tell us what happened. There is an obvious hematoma to her forehead. Patient does take Eliquis. Related Data Home Medications Medication Instructions Recorded Confirmed donepezil 10 mg tablet (Aricept) 10 mg PO DAILY 02/24/22 02/24/22 levothyroxine 88 mcg tablet 88 mcg PO DAILY 02/24/22 02/24/22 memantine 28 mg capsule 28 mg PO DAILY 02/24/22 02/24/22 sprinkle,extended release 24hr Allergies Allergy/AdvReac Type Severity Reaction Status Date / Time Sulfa (Sulfonamide Allergy Unknown Unknown Verified 03/10/22 04:50 Antibiotics) Review of Systems Review of Systems: ROS unobtainable: Yes unobtainable due to mental status PMFSH Past Medical History Medical History (Updated 03/10/22 @ 06:29 by Chance Reilly MD) Alzheimer's disease with late onset (02/05/19) Aortic stenosis, severe CHF (congestive heart failure) Dvt femoral (deep venous thrombosis) Essential hypertension Gastroesophageal reflux disease Hyperlipidemia Pneumonia Pulmonary emboli Pulmonary hypertension (~02/2022) Family History Family History Mother Family history of malignant neoplasm Social History Social History Smoking status: Never smoker Second hand tobacco smoke exposure: No Alcohol intake: never Substance use: never Substance use type: does not use Spiritual care concerns: Yes (Zohaib) Exam Narrative: GENERAL: Well-appearing, well-nourished, and in no acute distress. HEAD: Normocephalic, hematoma right forehead. EYES: PERRL and EOMI. ENT: Mucous membranes moist. Neck: Supple, no midline tenderness, normal range of motion. CHEST: Clear to auscultation. No respiratory distress. HEART: Regular rate and rhythm. Normal peripheral pulses. EXTREMITIES: Normal range of motion. No edema. SKIN: Warm, dry, no rash. NEURO: Alert and oriented x1. Course Vital Signs Vital signs: Vital Signs Temperature 97.4 F L 03/10/22 04:34 Respiratory Rate 16 03/10/22 04:34 Blood Pressure 172/73 H 03/10/22 04:34 Temperature 97.4 F L 03/10/22 04:34 Pulse Rate 64 03/10/22 06:20 Respiratory Rate 18 03/10/22 06:20 Blood Pressure 148/51 H 03/10/22 06:20 Pulse Oximetry 96 03/10/22 06:20 MDM - Fall Imaging Data Radiologist's impression: CT head: There is no evidence of acute intracranial hemorrhage. No mass-effect or midline shift. Ventricular volumes are unchanged since the prior exam 2 weeks ago. No abnormal extra-axial fluid collections. Right frontal scalp soft tissue swelling with subcutaneous hematoma. No underlying osseous abnormality. Discharge Plan Discharge Clinical Impression: Traumatic hematoma of forehead Patient Disposition: Home, Self-Care Condition: Stable Instructions: Hematoma (ED) Additional Instructions: Return to the ER if you suffer additional injury, you have chest pain or shortness of breath, you have additional concerns. Prescriptions: No Action levothyroxine 88 mcg Tablet 88 mcg PO DAILY donepezil [Aricept] 10 mg tablet 10 mg PO DAILY memantine 28 mg capsule,sprinkle,ER 24hr 28 mg PO DAILY carvedilol [Coreg] 3.125 mg Tablet 3.125 mg PO Q12HR 30 Days Qty: 60 0RF Entresto 24-26 mg Tablet 1 tablet PO Q12HR 30 Days Qty: 60 0RF Eliquis 5 mg tablet See Rx Instructions .ROUTE .COMPLEX 30 Days Qty: 72 0RF Rx Instructions: 10 mg (2 tablets) by mouth twice daily for 6 more days, then start 5 mg (1 tablet) by mouth twice daily until stopped by primary care provider. furosemide 20 mg tablet 20 mg PO DAILY 30 Days Qty
[2022-03-10 06:48] VITALS: BP 133/44; PULSE 60; RESP 20; O2SAT 94
[2022-03-10 07:18] VITALS: BP 146/55; PULSE 58; RESP 18; O2SAT 95
== END 2022-03-10 08:34 ==
PROVIDERS: Emergency Provider Emergency Medicine; PCP Internal Medicine
DX: S00.83XA Contusion of other part of head, initial encounter (principal); G30.1 Alzheimer's disease with late onset; F02.80 Dementia in other diseases classified elsewhere, unspecified severity, without behavioral disturbance, psychotic disturbance, mood disturbance, and anxiety; I35.0 Nonrheumatic aortic (valve) stenosis; I50.9 Heart failure, unspecified; I11.0 Hypertensive heart disease with heart failure; E78.5 Hyperlipidemia, unspecified; I27.20 Pulmonary hypertension, unspecified; K21.9 Gastro-esophageal reflux disease without esophagitis; Z87.01 Personal history of pneumonia (recurrent); Z86.718 Personal history of other venous thrombosis and embolism; Z86.711 Personal history of pulmonary embolism; Z79.01 Long term (current) use of anticoagulants; W19.XXXA Unspecified fall, initial encounter
CPT/HCPCS: 70450; 99284

== ENCOUNTER 2022-05-01 18:48 | Emergency (ER) | payer MEDICARE, OTHER, SELFPAY ==
[2022-05-01] VITALS (8 sets, daily range): BP systolic 162; BP diastolic 72–80; PULSE 66–82; RESP 16–25; TEMP 36.9; O2SAT 97–100
--- NOTE | ~2022-05-01 | CT_ITS ---
EXAMINATION: CT brain wo con DATE: 05/01/2022 19:19 INDICATION: head injury . TECHNIQUE: Computed tomography (CT) of the head was performed without intravenous contrast. The mA wa s adjusted according to patient size. Iterative reconstruction technique was employed. The dose-lengt h product was 605.33 mGy-cm. COMPARISON: 03/10/2022. FINDINGS: No acute intracranial hemorrhage or extra-axial fluid collection. No hydrocephalus, mass, or herniation. No acute ischemic infarct. Unremarkable dural venous sinus attenuation. No acute osseous abnormality. Resolving right frontal scalp hematoma. The aerated spaces are clear. Mild atrophy and moderate scattered chronic white matter change. Atherosclerotic intracranial calcifi cations. Possible small arachnoid cyst near the vertex. IMPRESSION: No acute intracranial process. Reviewed, dictated and finalized at location K.
--- NOTE | ~2022-05-01 | CT_ITS ---
EXAMINATION: CT cervical spine wo con DATE: 05/01/2022 19:19 INDICATION: head injury TECHNIQUE: Computed tomography (CT) of the cervical spine was performed without intravenous contrast. Automated exposure control and iterative reconstruction technique were employed. The dose-length pro duct was 162.84 mGy-cm. COMPARISON: None FINDINGS: Vertebral Body Alignment: 3 mm anterolisthesis of C6 on C7, likely on a degenerative basis. Craniocervical and atlantoaxial alignment: Moderate degenerative change. Large pannus. Alignment inta ct. Osseous structures/fracture: No evidence of a lytic or blastic process in the visualized spine. No e vidence of acute fracture. Cervical soft tissues: The paraspinal soft tissues planes are maintained. Degenerative changes: Multilevel degenerative disc disease, severe at C6-7. Multilevel moderate facet arthropathy. No severe central canal or neural foraminal narrowing. IMPRESSION: No acute fracture or traumatic malalignment in the cervical spine. Reviewed, dictated and finalized at location K.
--- NOTE | 2022-05-01 19:04 | ED.GENADULT ---
HPI - General Adult General Chief complaint: Head Injury Stated complaint: fall.head lac Time Seen by Provider: 05/01/22 18:54 History of Present Illness HPI narrative: 82-year-old female presented to the emergency department from a local detention for evaluation after having a fall from her wheelchair. Patient fall was unwitnessed. Patient denies any loss of consciousness. Patient does have a laceration over her left. Patient denies any complaints. Related Data Home Medications Medication Instructions Recorded Confirmed donepezil 10 mg tablet (Aricept) 10 mg PO DAILY 02/24/22 02/24/22 levothyroxine 88 mcg tablet 88 mcg PO DAILY 02/24/22 02/24/22 Allergies Allergy/AdvReac Type Severity Reaction Status Date / Time Sulfa (Sulfonamide Allergy Unknown Unknown Verified 03/10/22 04:50 Antibiotics) Review of Systems Review of Systems: ROS unobtainable: Yes unobtainable due to mental status PMFSH Past Medical History Medical History (Updated 05/01/22 @ 20:08 by Todd Torres MD) Alzheimer's disease with late onset (02/05/19) Aortic stenosis, severe CHF (congestive heart failure) Dvt femoral (deep venous thrombosis) Essential hypertension Gastroesophageal reflux disease Hyperlipidemia Pneumonia Pulmonary emboli Pulmonary hypertension (~02/2022) Family History Family History Mother Family history of malignant neoplasm Social History Social History Smoking status: Never smoker Second hand tobacco smoke exposure: No Alcohol intake: never Substance use: never Substance use type: does not use Spiritual care concerns: Yes (Zohaib) Exam Narrative: APPEARANCE: Well appearing, no pain, no distress, well-nourished. HEAD: normocephalic, atraumatic. EYES: PERRLA/EOMI, conjunctivae clear. NOSE: Normal no drainage EARS:TMS clear with good light reflex. THROAT: Pharynx clear, no exudate. NECK: Supple. No adenopathy, no masses. RESPIRATORY: Airway patent, respirations nonlabored. Clear to auscultation bilaterally, no rales, rhonchi, wheezing. CARDIOVASCULAR: Regular rate and rhythm without murmurs rubs or gallops. ABDOMINAL: Soft, nontender, nondistended, normal bowel sounds MUSCULOSKELETAL: Moves all extremities. Strength/ROM intact, No edema, No calf tenderness. NEURO: Alert. Cranial nerves II through XII intact. Grossly intact SKIN: Superficial laceration over left eyebrow Course Course Emergency Course: Wound over left eye was repaired with Steri-Strips. Vital Signs Vital signs: Vital Signs Temperature 98.5 F 05/01/22 18:51 Pulse Rate 77 05/01/22 18:51 Respiratory Rate 20 05/01/22 18:51 Blood Pressure 162/72 H 05/01/22 18:51 Pulse Oximetry 98 05/01/22 18:51 Temperature 98.5 F 05/01/22 18:51 Pulse Rate 82 05/01/22 23:30 Respiratory Rate 18 05/01/22 23:30 Blood Pressure 162/80 H 05/01/22 21:21 Pulse Oximetry 100 05/01/22 23:30 Procedures Laceration Laceration 1: Site: face Side (If applicable): left Size (cm): 2 Description: linear Depth: simple, single layer Pre-repair: wound explored ====== Skin Level ====== Skin layer closed with: steri strips ====== Subcutaneous Layer ====== ====== Muscle Layer ====== ====== Tendon Layer ====== Medical Decision Making Vital Signs Vital Signs: Vital Signs Temperature 98.5 F 05/01/22 18:51 Pulse Rate 77 05/01/22 18:51 Respiratory Rate 20 05/01/22 18:51 Blood Pressure 162/72 H 05/01/22 18:51 Pulse Oximetry 98 05/01/22 18:51 Temperature 98.5 F 05/01/22 18:51 Pulse Rate 82 05/01/22 23:30 Respiratory Rate 18 05/01/22 23:30 Blood Pressure 162/80 H 05/01/22 21:21 Pulse Oximetry 100 05/01/22 23:30 Imaging Data Radiologist's impression: Impressions Head CT 05/01/22 19:23
--- NOTE | 2022-05-01 20:11 | PC.NURSE ---
tried to call to let him know his was here and there was no answer
== END 2022-05-02 02:25 ==
PROVIDERS: Emergency Provider Emergency Medicine; PCP Internal Medicine
DX: S01.112A Laceration without foreign body of left eyelid and periocular area, initial encounter (principal); G30.1 Alzheimer's disease with late onset; F02.80 Dementia in other diseases classified elsewhere, unspecified severity, without behavioral disturbance, psychotic disturbance, mood disturbance, and anxiety; I35.0 Nonrheumatic aortic (valve) stenosis; I50.9 Heart failure, unspecified; I11.0 Hypertensive heart disease with heart failure; E78.5 Hyperlipidemia, unspecified; I27.20 Pulmonary hypertension, unspecified; K21.9 Gastro-esophageal reflux disease without esophagitis; Z86.711 Personal history of pulmonary embolism; Z87.01 Personal history of pneumonia (recurrent); Z86.718 Personal history of other venous thrombosis and embolism; W05.0XXA Fall from non-moving wheelchair, initial encounter
CPT/HCPCS: 70450; 72125; 99284

== ENCOUNTER 2023-03-05 19:58 | Inpatient (IN) | payer MEDICARE, OTHER, SELFPAY ==
[2023-03-05] VITALS (7 sets, daily range): BP systolic 111–160; BP diastolic 65–95; PULSE 65–98; RESP 16–19; TEMP 36.7–36.9; O2SAT 95–100; BMI 20.7
--- NOTE | ~2023-03-05 | CT_ITS ---
EXAMINATION: CT brain wo con DATE: 03/05/2023 20:59 INDICATION: Altered mental status TECHNIQUE: Computed tomography (CT) of the head was performed without intravenous contrast. Sagittal and coronal reconstructions were performed. The mA was adjusted according to patient size. Iterative reconstruction technique was employed. The dose-length product was 681.00 mGy-cm. COMPARISON: head CT dated 05/01/2022 FINDINGS: No acute intracranial hemorrhage, acute infarction or abnormal extra axial fluid collection. There is moderate scattered white matter hypoattenuation consistent with chronic small vessel ischemic diseas e. Symmetric prominence of the sulci and ventricles consistent with moderate age-appropriate diffuse cerebral volume loss. No mass/mass effect. Intracranial calcified cerebral atherosclerosis is noted a t the carotid siphons. The orbits, paranasal sinuses and mastoid air cells are normal. IMPRESSION: 1. No acute intracranial process. 2. Age-related changes including moderate diffuse volume loss and moderate scattered white matter hyp oattenuation consistent with chronic small vessel ischemic disease. Reviewed, dictated and finalized at location A. IMPRESSION: 1. No acute intracranial process. 2. Age-related changes including moderate diffuse volume loss and moderate scat tered white matter hypoattenuation consistent with chronic small vessel ischemi c disease.
--- NOTE | ~2023-03-05 | XR_ITS ---
EXAMINATION: XR chest 1V DATE: 03/05/2023 21:01 INDICATION: Altered mental status. TECHNIQUE: frontal view of the chest was obtained. COMPARISON: Chest radiograph dated 03/03/2022 FINDINGS: Mild linear discoid atelectasis/scarring at the lateral left midlung zone and minimal streaky bibasil ar atelectasis. No other airspace opacities, pulmonary edema, pleural effusion or pneumothorax. Medic ally. Dense mitral annular calcification. Cholecystectomy clips in the right upper quadrant. IMPRESSION: 1. Mild atelectasis at the lateral left mid lung zone and bilateral lung bases. 2. Cardiomegaly. Reviewed, dictated and finalized at location A.
--- NOTE | 2023-03-05 20:07 | ED.AMS ---
HPI - Altered Mental Status General Chief Complaint: Altered Mental Status Stated Complaint: AMS History of Present Illness HPI narrative: 82-year-old female presented emerged department from a local retirement for evaluation of altered mental status. Patient had last been seen normal at approximately 650. The retirement went to check on the patient approximately 20 minutes later they found her to have decreased responsiveness. Patient's baseline abnormal is ANO x1 and patient does have history of dementia and Alzheimer's. Upon arrival to the ED patient is resting comfortably and does respond to voice and to physical stimuli. Patient does not take any narcotic pain medications but patient's pupils were pinpoint on arrival. Patient was found to be bradycardic on arrival. Patient has no focal neurodeficit and is moving all limbs equally. Related Data Home Medications Medication Instructions Recorded Confirmed donepezil 10 mg tablet (Aricept) 10 mg PO DAILY 02/24/22 03/06/23 acetaminophen 650 mg PO Q6-8H PRN Pain (Scale 03/06/23 03/06/23 Score 1-3) benzonatate 100 mg BYMOUTH QID PRN Cough 03/06/23 03/06/23 buspirone 5 mg tablet 5 mg PO BID 03/06/23 03/06/23 levothyroxine 100 mcg tablet 100 mcg PO DAILY 03/06/23 03/06/23 loperamide 2 mg PO PRN PRN Loose stools 03/06/23 03/06/23 melatonin 10 mg PO HS 03/06/23 03/06/23 quetiapine 25 mg tablet 12.5 mg PO HS 03/06/23 03/06/23 Allergies Allergy/AdvReac Type Severity Reaction Status Date / Time Sulfa (Sulfonamide Allergy Unknown Unknown Verified 12/21/22 07:21 Antibiotics) Review of Systems Review of Systems: All systems reviewed & are unremarkable except as noted in HPI and below PMFSH Past Medical History Medical History (Updated 03/05/23 @ 21:40 by Todd Torres MD) Alzheimer's disease with late onset (02/05/19) Aortic stenosis, severe CHF (congestive heart failure) Dvt femoral (deep venous thrombosis) Essential hypertension Gastroesophageal reflux disease Hyperlipidemia Pneumonia Pulmonary emboli Pulmonary hypertension (~02/2022) Family History Family History Mother Family history of malignant neoplasm Social History Social History (System 12/21/22 @ 07:21 by Rock Blackwell) Smoking status: Never smoker Second hand tobacco smoke exposure: No Alcohol intake: unknown Substance use: unknown Substance use type: does not use Spiritual care concerns: Yes (Spiritism) Exam Narrative: APPEARANCE: Well appearing, no pain, no distress, well-nourished. HEAD: normocephalic, atraumatic. EYES: PERRLA/EOMI, conjunctivae clear. NOSE: Normal no drainage THROAT: Pharynx clear, no exudate. NECK: Supple. No adenopathy, no masses. RESPIRATORY: Airway patent, respirations nonlabored. Clear to auscultation bilaterally, no rales, rhonchi, wheezing. CARDIOVASCULAR: Bradycardia ABDOMINAL: Soft, nontender, nondistended, normal bowel sounds MUSCULOSKELETAL: Moves all extremities. Strength/ROM intact, No edema, No calf tenderness. NEURO: Alert. Cranial nerves II through XII intact. Grossly intact SKIN: Warm, dry. Normal Color Course Course Emergency Course: 82-year-old female presented to ED for evaluation of altered mental status. Patient is ANO x1 at her baseline but had some decreased responsiveness at the retirement today. Patient is afebrile but does have a leukocytosis of 12.7. Patient hemoglobin is 11.8 which is similar to her baseline. Patient does have an elevated lactic of 3.5. Patient's CMP is normal appearing. Patient does have evidence of a urinary tract infection with bacteria and white blood cells. Patient does have previous urine cultures showing E. coli that was sensitive to Rocephin. Patient has blood and urine cultures pending and was treated with IV Rocephin. Patient was negative for influenza RSV and for COVID. Chest x-ray did show some atelectasis but no large focal pn
--- NOTE | 2023-03-05 20:18 | ECG_ITS ---
Measurements Intervals [place] Rate: 71 P: 64 AL: 154 QRS: -25 QRSD: 157 T: 148 QT: 473 QTc: 515 Interpretive Statements SINUS RHYTHM POSSIBLE LEFT ATRIAL ENLARGEMENT LEFT BUNDLE BRANCH BLOCK ABNORMAL ECG COMPARED TO ECG 02/24/2022 16:31:01 SINUS RHYTHM NOW PRESENT Electronically Signed On 03-08-2023 12:07:40 CDT by Bhavin Padilla D.O.
[2023-03-05 20:38] LABS: Basophils Absolute Auto 0.1 K/mm3 (0.0-0.1); Basophils Percent Auto 0.5 % (0.2-1.2); Eosinophils Absolute Auto 0.2 K/mm3 (0-0.3); Eosinophils Percent Auto 1.7 % (0-4.4); Hematocrit 37.3 % (37.0-47.0); Hemoglobin 11.8 g/dL (12.0-15.0); Immature Granulocyte Absolute 0.09 K/mm3 (0.00-0.031); Immature Granulocyte Percent A 0.7 % (0-0.5); Lymphocytes Absolute Auto 3.82 K/mm3 (0.9-3.2); Lymphocytes Percent Auto 30.1 % (18.3-44.2); Mean Corpuscular HGB Conc 31.6 g/dl (32-36); Mean Corpuscular Hemoglobin 33.1 pg (26-34); Mean Corpuscular Volume 104.5 fl (80-100); Mean Platelet Volume 10.3 fl (7.4-10.4); Monocytes Absolute Auto 0.8 K/mm3 (0.1-0.6); Monocytes Percent Auto 6.1 % (2.6-8.5); Neutrophils Absolute Auto 7.7 K/mm3 (1.3-6.7); Neutrophils Percent Auto 60.9 % (45.5-73.1); Platelet Count Result 197 k/mm3 (150-375); Red Blood Count 3.57 M/mm3 (4.2-5.4); Red Cell Distribution Width 14.5 % (11.5-14.5); White Blood Count 12.7 K/mm3 (4.5-10.0)
[2023-03-05 20:52] LABS: Alanine Aminotransferase 14 U/L (6-35); Albumin Level 3.9 g/dL (3.5-5.1); Alkaline Phosphatase 46 U/L (38-126); Anion Gap 8 mmol/L (8-16); Aspartate Amino Transferase 21 U/L (14-36); Bilirubin,Total 0.6 mg/dL (0.2-1.3); Blood Urea Nitrogen 19 mg/dL (7-17); Calcium 8.4 mg/dL (8.4-10.2); Carbon Dioxide 26 mmol/L (22-30); Chloride 106 mmol/L (98-107); Estimated Glomerular Filt Rate > 60; Glucose 196 mg/dL (65-110); INR 1.1; Partial Thromboplastin Time 21.4 SECONDS (22.3-36.8); Potassium 3.5 mmol/L (3.4-5.0); Prothrombin Time 14.1 Seconds (11.1-14.7); Sodium 140 mmol/L (137-145)
[2023-03-05 20:53] LABS: Lactic Acid Reflex 3.5 mmol/L (0.7-2.0)
[2023-03-05 21:01] LABS: Appearance Urine Cloudy (Clear); Bacteria Urine 2+ /hpf; Bilirubin Urine Negative (Negative); Blood Urine 2+ (Negative); Color Urine Yellow (Yellow); Glucose Urine UA Negative (Negative); Ketones Urine Negative (Negative); Leukocyte Esterase Ur 2+ LEU/UL (Negative); Need Manual Microscopic Reviewed; Nitrate Urine Negative (Negative); Non Pathogenic Casts >20; Protein Urine 2+ mg/dL (Negative); Specific Grav Ur 1.011 (1.001-1.035); Squamous Epithelial Cell Urine None seen /hpf (Few); Urobilinogen Urine 0.2 mg/dL (<2.0); WBC Urine >100 /hpf; pH Urine 7.5 (5.0-9.0)
[2023-03-05 21:02] LABS: Add Urine Microscopic? YES
[2023-03-05 21:23] LABS: Influenza A QL RT-PCR Negative (Negative); Influenza B QL RT-PCR Negative (Negative); RSV RNA, RT-PCR Negative (Negative); SARS-CoV-2 RNA PCR Negative (Negative)
[2023-03-05] MEDS: SODIUM CHLORIDE 0.9% IV 1,000 ML 999 ML IV CONT (22:00)
--- NOTE | 2023-03-05 22:02 | PM.IMHP ---
H&P: HPI History of Present Illness Date/Time: 03/05/23 22:02 Chief Complaint: Unresponsive Narrative: 82-year-old female with a past medical history of critical aortic stenosis, severe pulmonary hypertension, systolic congestive heart failure, advanced dementia, hypothyroidism and frequent urinary tract infections who presented to the ER from [facility] for unresponsive episode. Source of information is from past medical records, EMS report and ER report. Patient is unable to provide any history his she is alert oriented only to her name which is baseline. Her speech is fluent but contains only word salad. She does open her eyes when ordered to do so but only intermittently follows commands. Reportedly the patient was awake at 18:50 and when they checked on her again she was unresponsive. She reportedly only responding to painful stimuli. senior care staff told EMS that they found the patient with low blood pressure in a pulse rate in the 50s and her oxygen level was ranging from 70-90. Blood glucose was 258. EKG in the field demonstrated sinus bradycardia with occasional PVCs and a left bundle-branch block. On arrival to the ER the patient was reportedly having pinpoint pupils. However, this resolved by the time of my evaluation. Review of Systems Review of Systems: ROS unobtainable: Yes unobtainable due to mental status PMFSH Past Medical History Medical History Alzheimer's disease with late onset (02/05/19) Aortic stenosis, severe Combined systolic and diastolic congestive heart failure Echocardiogram 02/2022: EF of 20 25%, grade 3 diastolic dysfunction, left atrial chamber moderately enlarged, severe aortic valve sclerosis, mild aortic valve regurgitation, critical aortic stenosis with peak velocity 365 mean gradient of 30 and valve area 0.57 with index of 0.18 supporting severe aortic stenosis with cardiomyopathy, severe pulmonary hypertension Dvt femoral (deep venous thrombosis) Essential hypertension Gastroesophageal reflux disease Hyperlipidemia Hypothyroidism Osteoporosis Pneumonia Pulmonary emboli Severe pulmonary hypertension Vitamin D deficiency Surgical History Surgical History History of bladder suspension procedure X2 History of tonsillectomy and adenoidectomy History of total hysterectomy with bilateral salpingo-oophorectomy (BSO) Hx of cholecystectomy Status post open reduction with internal fixation of fracture Left forearm Family History Family History Mother Family history of malignant neoplasm Social History Social History (Updated 03/06/23 @ 04:16 by Emily Lizarraga DO) Social History: Code status: DNR/DNI Smoking status: Never smoker Second hand tobacco smoke exposure: No Alcohol intake: unknown Substance use: unknown Substance use type: does not use Spiritual care concerns: Yes ([place]) Meds Home Medications and Allergies Home Medications Medication Instructions Recorded Confirmed Type donepezil 10 mg tablet (Aricept) 10 mg PO DAILY 02/24/22 03/06/23 History carvedilol 3.125 mg tablet (Coreg) 3.125 mg PO Q12HR 30 days #60 tabs 03/03/22 03/06/23 Rx furosemide 20 mg tablet 20 mg PO DAILY 30 days #30 tabs 03/03/22 03/06/23 Rx sacubitril 24 mg-valsartan 26 mg 1 tablet PO Q12HR 30 days #60 tabs 03/03/22 03/06/23 Rx tablet (Entresto) memantine 28 mg capsule 28 mg PO DAILY #90 ea 04/26/22 03/06/23 Rx sprinkle,extended release 24hr acetaminophen 650 mg PO Q6-8H PRN Pain (Scale 03/06/23 03/06/23 History Score 1-3) benzonatate 100 mg BYMOUTH QID PRN Cough 03/06/23 03/06/23 History buspirone 5 mg tablet 5 mg PO BID 03/06/23 03/06/23 History levothyroxine 100 mcg tablet 100 mcg PO DAILY 03/06/23 03/06/23 History loperamide 2 mg PO PRN PRN Loose stools 03/06/23
[2023-03-05 23:36] LABS: Reflex Lactic Acid Yes or No Add Lactic
--- NOTE | 2023-03-05 23:56 | ADMGEN ---
This patient, Sana Murrieta, was admitted to 2 Medical Room 244-. Patient/family oriented to hospital policies and general routines including ID bracelet, bed and alarms, visiting hours, pain management, procedures, bathroom and other care routines, personal items, smoking policy, room service/diet, and visiting hours. Information on how to activate the Rapid Response Team has been discussed. Patient/Family are encouraged to report perceived risks to care and to ask questions if they do not understand what they are told or what they should do.
[2023-03-06] VITALS (11 sets, daily range): BP systolic 135–150; BP diastolic 62–75; PULSE 64–82; RESP 17–18; TEMP 36.4–36.7; O2SAT 96–100
[2023-03-06] MEDS: SODIUM CHLORIDE 0.9% IV 1,000 ML 70 ML IV CONT (00:04)
[2023-03-06 00:45] LABS: Lactic Acid 2.6 mmol/L (0.7-2.0)
--- NOTE | 2023-03-06 02:19 | PC.NURSE ---
Pt disoriented and poor historian. Admission completed by recalling past medical information and looking through [facility] records.
[2023-03-06] MEDS: LEVOTHYROXINE SODIUM 100 MCG TABLET PO (06:03)
[2023-03-06 06:06] LABS: Anion Gap 8 mmol/L (8-16); Blood Urea Nitrogen 16 mg/dL (7-17); Calcium 8.4 mg/dL (8.4-10.2); Carbon Dioxide 24 mmol/L (22-30); Chloride 109 mmol/L (98-107); Estimated CRCL calculation 52 ml/min; Estimated Glomerular Filt Rate > 60; Glucose 96 mg/dL (65-110); Potassium 3.4 mmol/L (3.4-5.0); Sodium 141 mmol/L (137-145)
[2023-03-06 06:08] LABS: Hematocrit 38.7 % (37.0-47.0); Hemoglobin 12.2 g/dL (12.0-15.0); Mean Corpuscular HGB Conc 31.5 g/dl (32-36); Mean Corpuscular Hemoglobin 32.4 pg (26-34); Mean Corpuscular Volume 102.9 fl (80-100); Mean Platelet Volume 10.7 fl (7.4-10.4); Platelet Count Result 202 k/mm3 (150-375); Red Blood Count 3.76 M/mm3 (4.2-5.4); Red Cell Distribution Width 14.5 % (11.5-14.5); White Blood Count 10.9 K/mm3 (4.5-10.0)
[2023-03-06 07:53] LABS: Free T4 Free Thyroxine 0.52 ng/mL (0.78-2.19)
--- NOTE | 2023-03-06 08:01 | ECG_ITS ---
Measurements Intervals [place] Rate: 67 P: 20 [place]: 159 QRS: -28 QRSD: 151 T: 139 QT: 479 QTc: 508 Interpretive Statements SINUS RHYTHM LEFT BUNDLE BRANCH BLOCK ABNORMAL ECG COMPARED TO ECG 02/24/2022 16:31:01 SINUS RHYTHM NOW PRESENT Electronically Signed On 03-06-2023 13:48:47 CDT by Bhavin Padilla D.O.
[2023-03-06 08:38] LABS: Creatine Kinase 33 U/L (30-135)
[2023-03-06] MEDS: carvediloL 3.125 MG TABLET PO ×2 (09:10→22:09)
[2023-03-06] MEDS: busPIRone HCL 5 MG TABLET PO ×2 (09:10→17:01)
[2023-03-06] MEDS: FUROSEMIDE 20 MG TABLET PO (09:11)
[2023-03-06] MEDS: DONEPEZIL HCL 10 MG TABLET PO (09:11)
[2023-03-06] MEDS: SACUBITRIL/VALSARTAN 24-26 MG TABLET 1 TAB PO ×2 (09:12→22:09)
[2023-03-06] MEDS: HEPARIN SODIUM 5,000 UNITS/ML VIAL 5000 UNITS SUB-Q ×2 (09:12→22:09)
[2023-03-06] MEDS: TOLNAFTATE 1% POWDER 45 GM BTL 1 APPLIC TOPICAL ×2 (09:12→22:10)
[2023-03-06] MEDS: MEMANTINE HCL XR 28 MG CAP PO (09:12)
--- NOTE | 2023-03-06 14:08 | PM.IMPN ---
Progress Note: A&P Assessment and Plan (1) Transient alteration of awareness: Code(s): R40.4 - Transient alteration of awareness Status: Acute Assessment and Plan: Patient had a brief unresponsive episode at her nursing facility, resolved prior to arrival in the ED. Likely due to UTI as below. Patient has been monitored on telemetry and is in sinus rhythm. Head CT with no acute findings. TSH is slightly abnormal, however would not expect this to be etiology of symptoms. Will check B12 and folate for full evaluation (2) UTI (urinary tract infection): Qualifiers: Urinary tract infection type: site unspecified Hematuria presence: without hematuria Qualified Code(s): N39.0 - Urinary tract infection, site not specified Code(s): N39.0 - Urinary tract infection, site not specified Status: Acute Assessment and Plan: UA with leukocytosis, pyuria, bacteriuria. Urine culture is pending. Continue empiric IV Rocephin while awaiting culture results. Blood cultures pending (3) Alzheimer's disease with late onset: Onset Date: 02/05/19 Code(s): G30.1 - Alzheimer's disease with late onset; F02.80 - Dementia in other diseases classified elsewhere, unspecified severity, without behavioral disturbance, psychotic disturbance, mood disturbance, and anxiety Status: Chronic Assessment and Plan: Patient is oriented to self only today, suspect she is at her baseline. Continue home donepezil and memantine. Continue home Seroquel (4) Essential hypertension: Code(s): I10 - Essential (primary) hypertension Status: Chronic Assessment and Plan: Blood pressure is reasonably controlled for her age. Continue home carvedilol furosemide, Entresto. Monitor BP trends (5) Lactic acidosis: Code(s): E87.20 - Acidosis, unspecified Status: Acute Assessment and Plan: Lactic acid was 3.5 on admission, improved to 2.6 on repeat. Likely due to infection, however suspect this may partially be due to hypoperfusion from severe aortic stenosis. No need for repeat testing given overall clinical improvement at this time (6) Abnormal TSH: Code(s): R79.89 - Other specified abnormal findings of blood chemistry Status: Acute Assessment and Plan: TSH is elevated at 13.8 with low T4 and T3. Continue with levothyroxine 100 mcg daily. Will need TSH with reflex in 4 weeks as an outpatient upon resolution of acute illness. Subjective Date/time seen: 03/06/23 14:08 Interval history: Date of service: 03/06/2023 Sana Murrieta is an 82-year-old female with a history of Alzheimer's, aortic stenosis, hypertension, GERD, hypothyroidism who is seen in follow-up for UTI. She is a poor historian and is oriented to self only. Not able to obtain any history. Review of Systems Review of Systems: ROS unobtainable: Yes unobtainable due to mental status Exam Narrative: General: Well-nourished, chronically ill-appearing 82-year-old female, sitting up in bed, comfortable, NARD Neuro: Asleep, arouses easily to verbal stimuli, oriented to self only, not able to answer any additional questions or follow commands, no focal neuro deficits noted HEENMT: normocephalic, atraumatic, EOMI, sclerae anicteric Respiratory: clear to auscultation bilaterally, nonlabored breathing Cardio: regular rate, regular rhythm, loud murmur heard best at right sternal border Abdomen: nondistended, normoactive bowel sounds, soft, nontender to palpation Extremities: no edema, erythema, or tenderness to palpation Skin: no rashes or lesions, warm and dry Psych: judgment and insight poor Objective Data Vital Signs Vital Signs: Vital Signs - 24 hr 03/05/23 20:01 03/05/23 20:05 03/05/23 22:00 Temperature 98.5 F Pulse Rate 65 70 70 Respiratory Rate 19 17 Blood Pressure 111/68 145/65 H Pulse Oximetry 96 Oxygen Delivery Room Air
[2023-03-06] MEDS: MELATONIN 5 MG TABLET 10 MG PO (22:09)
[2023-03-06] MEDS: QUEtiapine FUMARATE 12.5 MG TABLET PO (22:09)
[2023-03-07] VITALS: PULSE 84
[2023-03-07 03:59] VITALS: BP 176/65; PULSE 73; RESP 18; TEMP 36.1; O2SAT 100
[2023-03-07 04:00] VITALS: PULSE 64
[2023-03-07 05:29] LABS: Hematocrit 39.7 % (37.0-47.0); Hemoglobin 12.7 g/dL (12.0-15.0); Mean Corpuscular Hemoglobin 32.6 pg (26-34); Mean Corpuscular Volume 101.8 fl (80-100); Mean Platelet Volume 10.3 fl (7.4-10.4); Platelet Count Result 181 k/mm3 (150-375); Red Cell Distribution Width 14.6 % (11.5-14.5); White Blood Count 9.2 K/mm3 (4.5-10.0)
[2023-03-07 05:44] LABS: Anion Gap 8 mmol/L (8-16); Blood Urea Nitrogen 13 mg/dL (7-17); Calcium 8.6 mg/dL (8.4-10.2); Carbon Dioxide 26 mmol/L (22-30); Chloride 106 mmol/L (98-107); Estimated CRCL calculation 61 ml/min; Estimated Glomerular Filt Rate > 60; Glucose 99 mg/dL (65-110); Potassium 3.7 mmol/L (3.4-5.0); Sodium 140 mmol/L (137-145)
[2023-03-07] MEDS: LEVOTHYROXINE SODIUM 100 MCG TABLET PO (06:15)
[2023-03-07 06:50] LABS: Folic Acid 5.7 ng/mL (2.76->20); Vitamin B12 < 159.0 pg/mL (239-931)
[2023-03-07 08:00] VITALS: PULSE 59
[2023-03-07] MEDS: DONEPEZIL HCL 10 MG TABLET PO (08:45)
[2023-03-07] MEDS: MEMANTINE HCL XR 28 MG CAP PO (08:45)
[2023-03-07] MEDS: FUROSEMIDE 20 MG TABLET PO (08:45)
[2023-03-07] MEDS: busPIRone HCL 5 MG TABLET PO ×2 (08:46→16:51)
[2023-03-07] MEDS: HEPARIN SODIUM 5,000 UNITS/ML VIAL 5000 UNITS SUB-Q (08:46)
[2023-03-07] MEDS: SACUBITRIL/VALSARTAN 24-26 MG TABLET 1 TAB PO (08:46)
[2023-03-07] MEDS: CYANOCOBALAMIN 1,000 MCG TABLET 1000 MCG PO (08:46)
[2023-03-07] MEDS: TOLNAFTATE 1% POWDER 45 GM BTL 1 APPLIC TOPICAL (08:46)
[2023-03-07] MEDS: carvediloL 3.125 MG TABLET PO (08:46)
[2023-03-07] MEDS: CYANOCOBALAMIN INJ 1,000 MCG/ML VIAL 1000 MCG IM (09:00)
--- NOTE | 2023-03-07 10:29 | PM.IMPN ---
Progress Note: A&P Assessment and Plan (1) Transient alteration of awareness: Code(s): R40.4 - Transient alteration of awareness Status: Acute Assessment and Plan: Patient had a brief unresponsive episode at her nursing facility, resolved prior to arrival in the ED. Likely due to UTI as below. Patient has been monitored on telemetry and is in sinus rhythm. Head CT with no acute findings. TSH is slightly abnormal, however would not expect this to be etiology of symptoms. patient remains alert today (2) UTI (urinary tract infection): Qualifiers: Urinary tract infection type: site unspecified Hematuria presence: without hematuria Qualified Code(s): N39.0 - Urinary tract infection, site not specified Code(s): N39.0 - Urinary tract infection, site not specified Status: Acute Assessment and Plan: UA with leukocytosis, pyuria, bacteriuria. Urine culture is pending. Continue empiric IV Rocephin while awaiting culture results. Blood cultures pending. patient remains afebrile, no leukocytosis. (3) Alzheimer's disease with late onset: Onset Date: 02/05/19 Code(s): G30.1 - Alzheimer's disease with late onset; F02.80 - Dementia in other diseases classified elsewhere, unspecified severity, without behavioral disturbance, psychotic disturbance, mood disturbance, and anxiety Status: Chronic Assessment and Plan: Patient is oriented to self only today, suspect she is at her baseline. Continue home donepezil and memantine. Continue home Seroquel (4) Essential hypertension: Code(s): I10 - Essential (primary) hypertension Status: Chronic Assessment and Plan: Blood pressures have been reasonably controlled for her age. slightly elevated this morning prior to receiving antihypertensives. Continue home carvedilol furosemide, Entresto. Monitor BP trends And adjust medications as needed (5) Lactic acidosis: Code(s): E87.20 - Acidosis, unspecified Status: Acute Assessment and Plan: Lactic acid was 3.5 on admission, improved to 2.6 on repeat. Likely due to infection, however suspect this may partially be due to hypoperfusion from severe aortic stenosis. No need for repeat testing given overall clinical improvement at this time (6) Abnormal TSH: Code(s): R79.89 - Other specified abnormal findings of blood chemistry Status: Acute Assessment and Plan: TSH is elevated at 13.8 with low T4 and T3. Continue with levothyroxine 100 mcg daily. Will need TSH with reflex in 4 weeks as an outpatient upon resolution of acute illness. (7) B12 deficiency: Code(s): E53.8 - Deficiency of other specified B group vitamins Status: Acute Assessment and Plan: vitamin B12 levels <159. may be contributing to patient's neurological symptoms/ transient alteration. given patient is symptomatic, will proceed with IM cyanocobalamin 1000 mcg daily for 3 doses and then weekly for 3 more weeks. will also begin 1000 mcg p.o. daily Subjective Date/time seen: 03/07/23 10:29 Interval history: Date of service: 03/07/2023 Sana Murrieta is an 82-year-old female with a history of Alzheimer's, aortic stenosis, hypertension, GERD, hypothyroidism who is seen in follow-up for UTI. She is a poor historian and is oriented to self only. She appears more alert today. She was able to eat some breakfast. She states that she is feeling fine. She was not able to provide any additional reliable history Review of Systems Review of Systems: ROS unobtainable: Yes unobtainable due to mental status Exam Narrative: General: Well-nourished, chronically ill-appearing 82-year-old female, sitting up in bed, comfortable, NARD Neuro: awake, alert, oriented to self only (stated that we are [place]), able to follow some simple commands, no focal neuro deficits noted, exhibits confusion HEENMT: normocephali
[2023-03-07 14:00] VITALS: BP 150/78; PULSE 70; RESP 18; TEMP 36.4; O2SAT 99
[2023-03-07 20:08] VITALS: BP 155/65; PULSE 66; RESP 20; TEMP 36.7; O2SAT 98
[2023-03-08 04:43] VITALS: BP 147/86; PULSE 63; RESP 20; TEMP 36.2; O2SAT 99
[2023-03-08 05:34] LABS: Hematocrit 41.3 % (37.0-47.0); Hemoglobin 13.3 g/dL (12.0-15.0); Mean Corpuscular HGB Conc 32.2 g/dl (32-36); Mean Corpuscular Hemoglobin 32.3 pg (26-34); Mean Corpuscular Volume 100.2 fl (80-100); Mean Platelet Volume 10.7 fl (7.4-10.4); Platelet Count Result 213 k/mm3 (150-375); Red Blood Count 4.12 M/mm3 (4.2-5.4); Red Cell Distribution Width 14.3 % (11.5-14.5); White Blood Count 9.8 K/mm3 (4.5-10.0)
[2023-03-08 05:47] LABS: Anion Gap 9 mmol/L (8-16); Blood Urea Nitrogen 11 mg/dL (7-17); Calcium 8.8 mg/dL (8.4-10.2); Carbon Dioxide 26 mmol/L (22-30); Chloride 103 mmol/L (98-107); Estimated CRCL calculation 61 ml/min; Estimated Glomerular Filt Rate > 60; Glucose 101 mg/dL (65-110); Potassium 3.5 mmol/L (3.4-5.0); Sodium 138 mmol/L (137-145)
[2023-03-08 09:20] VITALS: PULSE 70
[2023-03-08] MEDS: busPIRone HCL 5 MG TABLET PO ×2 (09:20→16:50)
[2023-03-08] MEDS: carvediloL 3.125 MG TABLET PO ×2 (09:20→20:18)
[2023-03-08] MEDS: FUROSEMIDE 20 MG TABLET PO (09:22)
[2023-03-08] MEDS: CYANOCOBALAMIN 1,000 MCG TABLET 1000 MCG PO (09:22)
[2023-03-08] MEDS: DONEPEZIL HCL 10 MG TABLET PO (09:22)
[2023-03-08] MEDS: SACUBITRIL/VALSARTAN 24-26 MG TABLET 1 TAB PO ×2 (09:23→20:19)
[2023-03-08] MEDS: TOLNAFTATE 1% POWDER 45 GM BTL 1 APPLIC TOPICAL ×2 (09:23→20:18)
[2023-03-08] MEDS: HEPARIN SODIUM 5,000 UNITS/ML VIAL 5000 UNITS SUB-Q ×2 (09:23→20:18)
[2023-03-08] MEDS: MEMANTINE HCL XR 28 MG CAP PO (09:23)
--- NOTE | 2023-03-08 12:06 | PM.IMPN ---
Progress Note: A&P Assessment and Plan (1) Transient alteration of awareness: Code(s): R40.4 - Transient alteration of awareness Status: Acute Assessment and Plan: Patient had a brief unresponsive episode at her nursing facility, resolved prior to arrival in the ED. Likely due to UTI as below. Patient was monitored on telemetry and maintained sinus rhythm. Head CT with no acute findings. TSH is slightly abnormal, however would not expect this to be etiology of symptoms. patient remains alert today (2) UTI (urinary tract infection): Qualifiers: Urinary tract infection type: site unspecified Hematuria presence: without hematuria Qualified Code(s): N39.0 - Urinary tract infection, site not specified Code(s): N39.0 - Urinary tract infection, site not specified Status: Acute Assessment and Plan: UA with leukocytosis, pyuria, bacteriuria. Urine culture is pending. Continue empiric IV Rocephin while awaiting culture results. Blood cultures pending. patient remains afebrile, no leukocytosis. Spoke with [facility] today, anticipate preliminary result today with final cultures tomorrow (3) Alzheimer's disease with late onset: Onset Date: 02/05/19 Code(s): G30.1 - Alzheimer's disease with late onset; F02.80 - Dementia in other diseases classified elsewhere, unspecified severity, without behavioral disturbance, psychotic disturbance, mood disturbance, and anxiety Status: Chronic Assessment and Plan: Patient is oriented to self only, consistent with her baseline. Continue home donepezil and memantine. Continue home Seroquel (4) Essential hypertension: Code(s): I10 - Essential (primary) hypertension Status: Chronic Assessment and Plan: Blood pressures have been reasonably controlled for her age. Continue home carvedilol furosemide, Entresto. Monitor BP trends and adjust medications as needed (5) Lactic acidosis: Code(s): E87.20 - Acidosis, unspecified Status: Resolved Assessment and Plan: Lactic acid was 3.5 on admission, improved to 2.6 on repeat. Likely due to infection, however suspect this may partially be due to hypoperfusion from severe aortic stenosis. No need for repeat testing given overall clinical improvement at this time (6) Abnormal TSH: Code(s): R79.89 - Other specified abnormal findings of blood chemistry Status: Acute Assessment and Plan: TSH is elevated at 13.8 with low T4 and T3. Continue with levothyroxine 100 mcg daily. Will need TSH with reflex in 4 weeks as an outpatient upon resolution of acute illness. (7) B12 deficiency: Code(s): E53.8 - Deficiency of other specified B group vitamins Status: Acute Assessment and Plan: Vitamin B12 levels <159. may be contributing to patient's neurological symptoms/ transient alteration. Given patient is symptomatic, will proceed with IM cyanocobalamin 1000 mcg daily for 3 doses and then weekly for 3 more weeks. Continue 1000 mcg p.o. cyanocobalamin daily Subjective Date/time seen: 03/08/23 12:06 Interval history: Date of service: 03/08/2023 Sana Murrieta is an 82-year-old female with a history of Alzheimer's, aortic stenosis, hypertension, GERD, hypothyroidism who is seen in follow-up for UTI. She is a poor historian and is oriented to self only. She is sitting up in bed with her breakfast tray in front of her, does not appear to have eaten anything yet. Not able to answer any questions or provide any history. Spoke to patient's daughter/HPOA who came and visited the patient this morning, feels that she is at her baseline at this time Review of Systems Review of Systems: All systems reviewed & are unremarkable except as noted in HPI and below Exam Narrative: General: Well-nourished, chronically ill-appearing 82-year-old female, sitting up in bed, comfortable, NARD Neuro: awake, jorge luis
[2023-03-08] MEDS: CYANOCOBALAMIN INJ 1,000 MCG/ML VIAL 1000 MCG IM (12:47)
[2023-03-08 14:00] VITALS: BP 138/82; PULSE 64; RESP 19; TEMP 36.4; O2SAT 97
[2023-03-08 15:01] VITALS: O2SAT 96
[2023-03-08 20:18] VITALS: PULSE 60
[2023-03-08] MEDS: QUEtiapine FUMARATE 12.5 MG TABLET PO (20:18)
[2023-03-08] MEDS: MELATONIN 5 MG TABLET 10 MG PO (20:18)
[2023-03-08 20:19] VITALS: BP 146/79; PULSE 68; RESP 18; TEMP 36.8; O2SAT 97
[2023-03-09 05:37] VITALS: BP 157/87; PULSE 53; RESP 18; TEMP 36.6; O2SAT 97
[2023-03-09] MEDS: LEVOTHYROXINE SODIUM 100 MCG TABLET PO (06:16)
[2023-03-09 08:57] VITALS: PULSE 85
[2023-03-09] MEDS: HEPARIN SODIUM 5,000 UNITS/ML VIAL 5000 UNITS SUB-Q (08:57)
[2023-03-09] MEDS: MEMANTINE HCL XR 28 MG CAP PO (08:57)
[2023-03-09] MEDS: SACUBITRIL/VALSARTAN 24-26 MG TABLET 1 TAB PO (08:57)
[2023-03-09] MEDS: DONEPEZIL HCL 10 MG TABLET PO (08:57)
[2023-03-09] MEDS: CYANOCOBALAMIN 1,000 MCG TABLET 1000 MCG PO (08:57)
[2023-03-09] MEDS: FUROSEMIDE 20 MG TABLET PO (08:57)
[2023-03-09] MEDS: busPIRone HCL 5 MG TABLET PO ×2 (08:57→16:49)
[2023-03-09] MEDS: carvediloL 3.125 MG TABLET PO (08:57)
[2023-03-09] MEDS: CYANOCOBALAMIN INJ 1,000 MCG/ML VIAL 1000 MCG IM (09:07)
[2023-03-09] MEDS: TOLNAFTATE 1% POWDER 45 GM BTL 1 APPLIC TOPICAL (09:07)
--- NOTE | 2023-03-09 09:30 | PM.DS ---
DS: Admitting Diagnosis Discharge Date 03/09/2330 Admitting Diagnosis Transient alteration of awareness, UTI, vitamin B deficiency and hypothyroidism DS: Discharge Diagnosis Discharge Diagnosis (1) Transient alteration of awareness: Code(s): R40.4 - Transient alteration of awareness Status: Acute Assessment and Plan: Patient had a brief unresponsive episode at her nursing facility, resolved prior to arrival in the ED. Likely due to UTI as below. Patient was monitored on telemetry and maintained sinus rhythm. Head CT with no acute findings. TSH is slightly abnormal, however would not expect this to be etiology of symptoms. patient remains alert today (2) UTI (urinary tract infection): Qualifiers: Hematuria presence: without hematuria Urinary tract infection type: site unspecified Qualified Code(s): N39.0 - Urinary tract infection, site not specified Code(s): N39.0 - Urinary tract infection, site not specified Status: Acute Assessment and Plan: UA with leukocytosis, pyuria, bacteriuria. Urine culture is pending. Continue empiric IV Rocephin while awaiting culture results. Blood cultures pending. patient remains afebrile, no leukocytosis. Spoke with [facility] today, anticipate preliminary result today with final cultures tomorrow (3) Alzheimer's disease with late onset: Onset Date: 02/05/19 Code(s): G30.1 - Alzheimer's disease with late onset; F02.80 - Dementia in other diseases classified elsewhere, unspecified severity, without behavioral disturbance, psychotic disturbance, mood disturbance, and anxiety Status: Chronic Assessment and Plan: Patient is oriented to self only, consistent with her baseline. Continue home donepezil and memantine. Continue home Seroquel (4) Essential hypertension: Code(s): I10 - Essential (primary) hypertension Status: Chronic Assessment and Plan: Blood pressures have been reasonably controlled for her age. Continue home carvedilol furosemide, Entresto. Monitor BP trends and adjust medications as needed (5) Lactic acidosis: Code(s): E87.20 - Acidosis, unspecified Status: Resolved Assessment and Plan: Lactic acid was 3.5 on admission, improved to 2.6 on repeat. Likely due to infection, however suspect this may partially be due to hypoperfusion from severe aortic stenosis. No need for repeat testing given overall clinical improvement at this time (6) Abnormal TSH: Code(s): R79.89 - Other specified abnormal findings of blood chemistry Status: Acute Assessment and Plan: TSH is elevated at 13.8 with low T4 and T3. Continue with levothyroxine 100 mcg daily. Will need TSH with reflex in 4 weeks as an outpatient upon resolution of acute illness. (7) B12 deficiency: Code(s): E53.8 - Deficiency of other specified B group vitamins Status: Acute Assessment and Plan: Vitamin B12 levels <159. may be contributing to patient's neurological symptoms/ transient alteration. Given patient is symptomatic, will proceed with IM cyanocobalamin 1000 mcg daily for 3 doses and then weekly for 3 more weeks. Continue 1000 mcg p.o. cyanocobalamin daily DS: Summary Hospital Course Hospital Course: patient is an 82-year-old female with a past medical history of Alzheimer's, aortic stenosis, hypertension, GERD, hypothyroidism who is seen for a UTI. Upon arrival patient was noted to be unresponsive at the nursing facility however resolved prior to coming to the ED. urinary tract infection was noted with culture that grew Raoultella ornithinolytica. patient was originally on IV ceftriaxone however has been changed to p.o. cefdinir at this time. Blood pressure has been stable. B12 was noted to be low and patient got 3 shots of a 1000 mcg and was started on oral B12. TSH was abnormal as well. Levothyroxine has been titrated up to 125 TSH with reflex w
[2023-03-09] MEDS: CEFDINIR 300 MG CAPSULE PO (09:49)
[2023-03-09 14:25] VITALS: BP 137/50; PULSE 60; RESP 16; TEMP 36.8; O2SAT 97
[2023-03-09 15:01] LABS: EDCOVIDSCREEN Negative (Negative)
== END 2023-03-09 18:39 | DRG 690 ==
LOC: ANHED 22:15 → ANH2MED 22:33
PROVIDERS: Physician Assistant; Admitting Provider Internal Medicine; Emergency Provider Emergency Medicine; PCP Family Medicine; Visit Provider Nurse Practitioner
DX: N39.0 Urinary tract infection, site not specified (principal); I50.42 Chronic combined systolic (congestive) and diastolic (congestive) heart failure; E87.20 Acidosis, unspecified; I27.20 Pulmonary hypertension, unspecified; I35.0 Nonrheumatic aortic (valve) stenosis; I11.0 Hypertensive heart disease with heart failure; B96.89 Other specified bacterial agents as the cause of diseases classified elsewhere; E55.9 Vitamin D deficiency, unspecified; E78.5 Hyperlipidemia, unspecified; E53.8 Deficiency of other specified B group vitamins; K21.9 Gastro-esophageal reflux disease without esophagitis; M81.0 Age-related osteoporosis without current pathological fracture; F02.80 Dementia in other diseases classified elsewhere, unspecified severity, without behavioral disturbance, psychotic disturbance, mood disturbance, and anxiety; G30.1 Alzheimer's disease with late onset; Z20.822 Contact with and (suspected) exposure to COVID-19; Z86.718 Personal history of other venous thrombosis and embolism; Z86.711 Personal history of pulmonary embolism
CPT/HCPCS: 36415; 36600; 70450; 71045; 80048; 80053; 81001; 82375; 82550; 82607; 82746; 82805; 83050; 83605; 84439; 84443; 84480; 85025; 85027; 85610; 85730; 87040; 87077; 87086; 87088; 87186; 87426; 87637; 93005; 96365; 99285; A9270; C9803; G0378; J0696; J1644; J3420; J7030